=== PATIENT | female | born 1955 | race Caucasian/White ===

== ENCOUNTER 2017-11-02 11:39 | Emergency (ER) | payer OTHER ==
[~2017-11-02] VITALS: Ht 170.2 cm; Wt 89.1 kg
[~2017-11-02 11:39] MED LIST: ACET-1256 PO; NF656 TD; POTA10CA28 PO; SPIR50TA2 PO; TRAM-10 PO; TRAZ50TA35 PO
[2017-11-02 11:43] VITALS: TEMP 36.8; Ht 170.2 cm; Wt 89.1 kg
[2017-11-02] MEDS ORDERED: HYDROmorphone INJ 1 MG/ML SYR IV STA (12:02)
[2017-11-02] MEDS ORDERED: ONDANSETRON INJ 2 MG/ML 2 ML VIAL IV STA (12:02)
[2017-11-02] MEDS ORDERED: SODIUM CHLORIDE 0.9% 1000ML 1,000 ML IV ONE (12:15)
[2017-11-02 12:27] LABS: BASO % 0.2 %; BASO ABS # 0.02 K/uL (0-0.2); COMPLETE YES; EOS % 0.6 %; HEMATOCRIT 36.3 % (37-47); IG% 0.2 %; LYMPH % 15.2 %; LYMPH ABS # 1.34 K/uL (1.2-3.4); MEAN CELL VOLUME 92.6 fL (80-100); MEAN CORPUSCULAR HEMOGLOBIN 31.1 pg (25-34); MEAN CORPUSCULAR HGB CONC 33.6 g/dl (32-36); MEAN PLATELET VOLUME 9.1 fL (7.4-10.4); MONO % 4.7 %; NEUT % 79.1 %; PLATELET COUNT 240 K/uL (130-400); RED BLOOD COUNT 3.92 M/uL (4.2-5.4)
[2017-11-02 12:42] LABS: ALT/SGPT 17 U/L (12-78); BLOOD UREA NITROGEN 7 mg/dl (7-18); BUN/CREATININE RATIO 6.1 (10-20); CALCIUM 9.4 mg/dl (8.5-10.1); CARBON DIOXIDE 26 mmol/L (21-32); CHLORIDE 102 mmol/L (98-107); CREATININE 1.12 mg/dl (0.60-1.20); GLUCOSE 101 mg/dl (70-99); POTASSIUM 4.5 mmol/L (3.5-5.1); SODIUM 133 mmol/L (136-145)
[2017-11-02 12:45] LABS: ALKALINE PHOSPHATASE 107 U/L (45-117); AST/SGOT 13 U/L (15-37)
[2017-11-02] MEDS ORDERED: HYDROmorphone INJ 0.5 MG/0.5 ML SYR IV STA (13:16)
[2017-11-02 13:28] LABS: URINE APPEARANCE CLEAR (CLEAR); URINE BILIRUBIN NEG (NEG); URINE COLOR YELLOW; URINE EPITHELIAL CELL AUTO >30 /lpf (0-5); URINE NITRITE NEG (NEG); URINE PH 6.5 (4.5-7.5); URINE SPECIFIC GRAVITY 1.013 (1.000-1.030); UROBILINOGEN NEG (NEG)
[2017-11-02 13:30] LABS: MANUAL MICROSCOPIC REQUIRED? NO; REVIEW REQ? NO
[2017-11-02 14:06] VITALS: BP 127/75; PULSE 75; O2SAT 95
--- NOTE | 2017-11-02 20:10 | EMERGENCY ROOM VISIT NOTE ---
ED Visit Note First contact with patient: 11:49 Chief Complaint: Sciatica and I think my potassium and magnesium is low. History of Present Illness: Ms. Hernandez is a 62-year-old white female who ambulates into the ED complaining of left-sided back pain and bilateral lower leg weakness. Historically patient reports she has a history of sciatica, stage III chronic kidney disease and pancreatitis. Patient reports a gradual onset of severe left-sided lower back pain that started 3 days ago. She feels this is consistent with her previous sciatica. She places her discomfort just left of the spine in the lower lumbar area. She describes her pain as a sharp sensation. There is radiation into the gluteal muscle and down the posterior thigh and stops before the knee. She rates her discomfort 8/10. Her pain worsens with palpation, ambulation in all movements of the lumbar spine. She has not identified any alleviating factors related to the pain. She has been using her prescribed Lidoderm patches and Tylenol without relief of her discomfort. Additionally she complains of bilateral lower leg weakness. She feels this is consistent with decreasing potassium and magnesium levels related to her chronic kidney disease. She reports she's had these symptoms before. She describes a progression of weakness starting at the feet extending up into the thighs. This worsens with walking. She reports over the last few days she has been trying to increase her magnesium and potassium. Additionally she reports shortly after waking this morning she developed some nausea and had dry heaving but did not vomit. He has not taken any antinausea medications. She denies fevers, chills, sweats, skin eruptions, skin color changes, upper respiratory tract symptoms, cough, wheezing, shortness of breath, chest pain, abdominal pain, diarrhea, constipation, rectal bleeding, black/tarry stools, urinary symptoms, hematuria, vaginal bleeding, vaginal discharge, bowel and bladder dysfunction, genital paresthesias. Review of Systems: As noted above in history of present illness. All body systems were reviewed and found to be negative as noted above. Past Medical History: As noted above and status post cholecystectomy Current Medications: Potassium chloride, trazodone, Aldactone. Allergies to Medications: Acetaminophen, codeine, fentanyl, Toradol, latex, morphine, moxifloxacin, propoxyphene. Social History: Patient is not employed; she feels safe in her home environment ; patient admits to tobacco use. Physical Examination: Vital Signs: Date Time Temp Pulse Resp B/P (MAP) Pulse Ox O2 Delivery O2 Flow Rate FiO2 11/02/17 14:06 75 17 127/75 95 11/02/17 12:43 75 17 118/65 99 Room Air 11/02/17 11:43 36.8 98 18 154/84 100 Room Air GENERAL: 62-year-old female in mild to moderate distress due to pain, nontoxic- appearing, afebrile and hemodynamically stable. NEUROLOGICAL: Awake, alert and oriented to person, place and time. Answering questions appropriately and following commands. Normal gait. Good hand eye coordination. No focal motor sensory deficits. SKIN: Warm, dry and pink. No soft tissue eruptions or trauma noted. HEENT: Atraumatic and normocephalic. PERRLA. Sclera white and conjunctiva pink. No drainage from naris. Oral cavity moist and pink. Pharynx is nonerythematous or edematous. Speech normal. No lymphadenopathy. Trachea midline. No jugular venous distention. BACK: No tenderness over the bony cervical and thoracic spine. No CVA tenderness. Moderate tenderness diffusely throughout the lumbar spine with prominence in the L3 L5 area. There is also moderate tenderness throughout the paraspinous muscles without spasm. Decreased range of motion in all movements due to pain. Negative straight leg raise test. THORAX: Lungs sounds are clear to auscultation and equal bilaterally with symmetrical chest wall. No wheezing, rales or rhonchi. No crepitus, tenderness , subcutaneous air or deformities noted. HEART: Regular rate and rhythm. No gallops, rubs or murmurs are appreciated. ABDOMEN: Flat, soft and nontender. Positive bowel sounds in all quadrants. No guarding, rigidity or organomegaly. EXTREMITIES: Moves all extremities well on command and with purpose. All distal neurovascular statuses are intact and equal bilaterally. No calf tenderness or cords. Lower Extremities: No gross bony deformity. No shortening or malrotation. No tenderness in the hips, knees or ankles. 4/5 muscle strength in all movements of the hips, knees and ankles. Able to distinguish light sensations through all dermatomes. Distal pulses and capillary refill is brisk and equal bilaterally. Patellar and Achilles deep tendon reflexes intact and equal bilaterally. ED Course: Patient is assessed as noted above. Patient's medication list was reviewed. Laboratory Testing: Test 11/02/17 12:00 11/02/17 12:10 Range/Units Urine Color YELLOW Urine Appearance CLEAR CLEAR Urine pH 6.5 4.5-7.5 Urine Specific [place] 1.013 1.000-1.030 Urine Protein NEG NEG Urine Glucose (UA) NEG NEG Urine Ketones NEG NEG Urine Occult Blood NEG NEG Urine Nitrite NEG NEG Urine Bilirubin NEG NEG Urine Urobilinogen NEG NEG Urine Leukocyte Esterase SMALL NEG Urine WBC (Auto) 5-10 0-5 /hpf Urine RBC (Auto) 0-4 0-4 /hpf Urine Hyaline Casts (Auto) 0 0-5 /lpf Urine Epithelial Cells (Auto) >30 0-5 /lpf Urine Bacteria (Auto) NEG NEG White Blood Count 8.80 4.8-10.8 K/uL Red Blood Count 3.92 4.2-5.4 M/uL Hemoglobin 12.2 12.0-16.0 g/dL Hematocrit 36.3 37-47 % Mean Corpuscular Volume 92.6 80-100 fL Mean Corpuscular Hemoglobin 31.1 25-34 pg Mean Corpuscular Hemoglobin Concent 33.6 32-36 g/dl Platelet Count 240 130-400 K/uL Mean Platelet Volume 9.1 7.4-10.4 fL Neutrophils (%) (Auto) 79.1 % Lymphocytes (%) (Auto) 15.2 % Monocytes (%) (Auto) 4.7 % Eosinophils (%) (Auto) 0.6 % Basophils (%) (Auto) 0.2 % Neutrophils # (Auto) 6.96 1.4-6.5 K/uL Lymphocytes # (Auto) 1.34 1.2-3.4 K/uL Monocytes # (Auto) 0.41 0.11-0.59 K/uL Eosinophils # (Auto) 0.05 0-0.5 K/uL Basophils # (Auto) 0.02 0-0.2 K/uL RDW Standard Deviation 47.4 36.4-46.3 fL RDW Coefficient of Variation 14.1 11.5-14.5 % Immature Granulocyte % (Auto) 0.2 % Immature Granulocyte # (Auto) 0.02 0.00-0.02 K/uL Sodium Level 133 136-145 mmol/L Potassium Level 4.5 3.5-5.1 mmol/L Chloride Level 102 98-107 mmol/L Carbon Dioxide Level 26 21-32 mmol/L Anion Gap 6.0 3-11 mmol/L Blood Urea Nitrogen 7 7-18 mg/dl Creatinine 1.12 0.60-1.20 mg/dl Est Creatinine Clear Calc Drug Dose 59.7 ml/min Estimated GFR () 61.0 Estimated GFR (Non- 52.6 BUN/Creatinine Ratio 6.1 10-20 Random Glucose 101 70-99 mg/dl Calcium Level 9.4 8.5-10.1 mg/dl Magnesium Level 1.8 1.8-2.4 mg/dl Total Bilirubin 0.3 0.2-1 mg/dl Direct Bilirubin < 0.1 0-0.2 mg/dl Aspartate Amino Transf (AST/SGOT) 13 15-37 U/L Alanine Aminotransferase (ALT/SGPT) 17 12-78 U/L Alkaline Phosphatase 107 45-117 U/L Total Protein 7.4 6.4-8.2 gm/dl Albumin 3.9 3.4-5.0 gm/dl Lipase 98 73-393 U/L Patient was hydrated with normal saline, she received a total of 1.5 mg of the Dilaudid IV for pain and 4 mg of Zofran IV. Patient was reassessed multiple times during her stay in the emergency department. Patient's case was reviewed with Dr. Falcon; we agreed on diagnostic approach, treatment, disposition and plan. Patient was educated about today's findings and instructed on her treatment plan ; she verbalizes understanding and agreement with this plan. Clinical Impression: Exacerbation of left-sided sciatica. Bilateral lower leg weakness. Decision-Making: Initially my differential diagnosis I considered ruptured herniated disc, exacerbation of sciatica, musculoskeletal trauma, paraspinous muscle spasm, spinal abscess and other causes. Patient's blood pressure: Normal. Blood pressure disposition: None. Disposition: Patient discharged to home in stable condition; prior to departure she was reassessed and subjectively reported she was feeling better and rated her discomfort 6/10. Plan: Patient was encouraged to continue her current medications as prescribed. Patient was encouraged to stay well-hydrated. Patient was encouraged to follow-up with her primary care provider for recheck. Patient was encouraged return ED for worsening pain, fevers, bowel and bladder discomfort, genital paresthesias or any new/concerning symptoms.
== END 2017-11-02 14:07 | disposition home or self-care (01) ==
LOC: C.EDB 11:42
DX: M54.42 Lumbago with sciatica, left side (principal); M62.81 Muscle weakness (generalized); N18.3 Chronic kidney disease, stage 3 (moderate); K86.1 Other chronic pancreatitis; Z72.0 Tobacco use; Z79.899 Other long term (current) drug therapy

== ENCOUNTER 2018-07-15 13:46 | Emergency (ER) | payer OTHER ==
[~2018-07-15] VITALS: Ht 170.2 cm; Wt 88.9 kg
[~2018-07-15 13:46] MED LIST changes: -ACET-1256 PO; -NF656 TD; -POTA10CA28 PO; -SPIR50TA2 PO; -TRAZ50TA35 PO
[2018-07-15 13:51] VITALS: TEMP 36.8; Ht 170.2 cm; Wt 88.9 kg
[2018-07-15] MEDS ORDERED: HYDROmorphone INJ 0.5 MG/0.5 ML SYR IV STA (14:07)
[2018-07-15] MEDS ORDERED: SODIUM CHLORIDE 0.9% 1000ML 1,000 ML IV STA (14:07)
[2018-07-15 14:36] LABS: BASO % 0.2 %; BASO ABS # 0.01 K/uL (0-0.2); EOS % 0.3 %; EOS ABS # 0.02 K/uL (0-0.5); HEMATOCRIT 37.6 % (37-47); HEMOGLOBIN 12.9 g/dL (12.0-16.0); IG# 0.01 K/uL (0.00-0.02); LYMPH % 15.8 %; LYMPH ABS # 1.03 K/uL (1.2-3.4); MEAN CELL VOLUME 90.6 fL (80-100); MEAN CORPUSCULAR HEMOGLOBIN 31.1 pg (25-34); MEAN CORPUSCULAR HGB CONC 34.3 g/dl (32-36); MEAN PLATELET VOLUME 9.6 fL (7.4-10.4); MONO % 5.1 %; MONO ABS # 0.33 K/uL (0.11-0.59); NEUT % 78.4 %; NEUT ABS # 5.12 K/uL (1.4-6.5); PLATELET COUNT 240 K/uL (130-400); RED CELL DISTRIBUTION WIDTH CV 13.8 % (11.5-14.5); RED CELL DISTRIBUTION WIDTH SD 45.6 fL (36.4-46.3); WHITE BLOOD COUNT 6.52 K/uL (4.8-10.8)
[2018-07-15 14:57] LABS: CALCIUM 9.2 mg/dl (8.5-10.1); CREATININE 1.15 mg/dl (0.60-1.20); POTASSIUM 3.5 mmol/L (3.5-5.1); TOTAL PROTEIN 7.7 gm/dl (6.4-8.2)
[2018-07-15] MEDS ORDERED: MAGNESIUM OXIDE 400 MG TAB PO STA (15:17)
[2018-07-15 15:30] LABS: INFLUENZA B ANTIGEN Neg for Influ B (NEG)
--- NOTE | 2018-07-15 15:52 | EMERGENCY ROOM VISIT NOTE ---
History First contact with patient: 13:57 Chief Complaint: FLU LIKE SX Stated Complaint: FLU SYMPTOMS History of Present Illness The patient is a 62 year old female who presents to the Emergency Room with complaints of flulike symptoms. The patient she is states she started Wednesday morning with a sore throat left ear pain and pain over her maxillary sinuses. Later in the afternoon she started with loose bowel movements every time she ate. She also admits to some nausea but denies any vomiting. She is not eating as much. She also feels achy all over especially her low back. She denies any urinary symptoms of frequency, urgency, dysuria or hematuria. The patient does admit to kidney disease. The patient states that her grandson had similar symptoms but she states she has it worse than he did. Review of Systems 10 system review was performed and was negative unless stated otherwise history of present illness. Past Medical/Surgical History Medical Problems: (1) Cyst of right kidney (2) Pancreatitis (3) Stage III chronic kidney disease Surgical Problems: (1) History of cholecystectomy Family History Cancer Diabetes mellitus Gallbladder disease Heart disease Hypertension Kidney stones Social History Smoking Status: Current Every Day Smoker Alcohol Use: none Drug Use: none Marital Status: Housing Status: lives with significant other Occupation Status: unemployed Current/Historical Medications Scheduled Amlodipine (Norvasc), 5 MG PO DAILY Potassium Chloride (Micro-K Ext Rel), 10 MEQ PO BID Spironolactone (Aldactone), 50 MG PO DAILY Scheduled PRN Tramadol (Ultram), 50 MG PO Q8H PRN for Pain Trazodone Hcl (Trazodone), 50 MG PO HS PRN for Sleep Physical Exam Vital Signs Date Time Temp Pulse Resp B/P (MAP) Pulse Ox O2 Delivery O2 Flow Rate FiO2 07/15/18 15:37 72 18 145/80 98 Room Air 07/15/18 14:42 75 18 134/78 96 Room Air 07/15/18 13:51 36.8 92 20 140/85 98 Room Air Physical Exam PHYSICAL EXAM: Vital Signs were reviewed: Temperature 36.9, blood pressure 140/ 85, pulse 92, respiratory rate 20 reviewed Nurse's notes and agree. Oxygen saturation is 98 % on room air which is normal . GENERAL: 62-year-old female appears in no acute distress. MENTAL STATUS: Alert, oriented, coherent. EARS: Canals clear. TMs good light reflex, no erythema or fluid level noted. NOSE: Nasal mucosa with moderate erythema engorgement. PHARYNX: Moderate erythema, no edema noted. No exudate noted. Airway is adequate. SINUSES: Frontal sinuses nontender to palpation. Right maxillary sinus tenderness percussion, left side nontender. NECK: Supple, non-tender. No lymphadenopathy noted. LUNGS: Clear to auscultation without wheezes rales or rhonchi. CARDIAC: Regular rate and rhythm without murmur. Abdomen: Positive bowel sounds all 4 quadrants soft, nontender to palpation without organomegaly or masses. SKIN: No rashes noted. Medical Decision & Procedures Laboratory Results 07/15/18 14:20 Red Blood Count 4.15, Mean Corpuscular Volume 90.6, Mean Corpuscular Hemoglobin 31.1, Mean Corpuscular Hemoglobin Concent 34.3, Mean Platelet Volume 9.6, Neutrophils (%) (Auto) 78.4, Lymphocytes (%) (Auto) 15.8, Monocytes (%) (Auto) 5.1, Eosinophils (%) (Auto) 0.3, Basophils (%) (Auto) 0.2, Neutrophils # (Auto) 5.12, Lymphocytes # (Auto) 1.03, Monocytes # (Auto) 0.33, Eosinophils # (Auto) 0.02, Basophils # (Auto) 0.01 07/15/18 14:20 Test 07/15/18 14:20 07/15/18 14:25 White Blood Count 6.52 K/uL (4.8-10.8) Red Blood Count 4.15 M/uL (4.2-5.4) Hemoglobin 12.9 g/dL (12.0-16.0) Hematocrit 37.6 % (37-47) Mean Corpuscular Volume 90.6 fL (80-100) Mean Corpuscular Hemoglobin 31.1 pg (25-34) Mean Corpuscular Hemoglobin Concent 34.3 g/dl (32-36) Platelet Count 240 K/uL (130-400) Mean Platelet Volume 9.6 fL (7.4-10.4) Neutrophils (%) (Auto) 78.4 % Lymphocytes (%) (Auto) 15.8 % Monocytes (%) (Auto) 5.1 % Eosinophils (%) (Auto) 0.3 % Basophils (%) (Auto) 0.2 % Neutrophils # (Auto) 5.12 K/uL (1.4-6.5) Lymphocytes # (Auto) 1.03 K/uL (1.2-3.4) Monocytes # (Auto) 0.33 K/uL (0.11-0.59) Eosinophils # (Auto) 0.02 K/uL (0-0.5) Basophils # (Auto) 0.01 K/uL (0-0.2) RDW Standard Deviation 45.6 fL (36.4-46.3) RDW Coefficient of Variation 13.8 % (11.5-14.5) Immature Granulocyte % (Auto) 0.2 % Immature Granulocyte # (Auto) 0.01 K/uL (0.00-0.02) Urine Color YELLOW Urine Appearance CLEAR (CLEAR) Urine pH 6.0 (4.5-7.5) Urine Specific [place] 1.023 (1.000-1.030) Urine Protein TRACE (NEG) Urine Glucose (UA) NEG (NEG) Urine Ketones TRACE (NEG) Urine Occult Blood NEG (NEG) Urine Nitrite NEG (NEG) Urine Bilirubin NEG (NEG) Urine Urobilinogen NEG (NEG) Urine Leukocyte Esterase NEG (NEG) Urine WBC (Auto) 1-5 /hpf (0-5) Urine RBC (Auto) 0-4 /hpf (0-4) Urine Hyaline Casts (Auto) 5-10 /lpf (0-5) Urine Epithelial Cells (Auto) >30 /lpf (0-5) Urine Bacteria (Auto) NEG (NEG) Anion Gap 10.0 mmol/L (3-11) Est Creatinine Clear Calc Drug Dose 58.1 ml/min Estimated GFR () 59.1 Estimated GFR (Non- 51.0 BUN/Creatinine Ratio 7.2 (10-20) Calcium Level 9.2 mg/dl (8.5-10.1) Magnesium Level 1.5 mg/dl (1.8-2.4) Total Bilirubin 0.4 mg/dl (0.2-1) Direct Bilirubin 0.1 mg/dl (0-0.2) Aspartate Amino Transf (AST/SGOT) 16 U/L (15-37) Alanine Aminotransferase (ALT/SGPT) 21 U/L (12-78) Alkaline Phosphatase 105 U/L (45-117) Total Protein 7.7 gm/dl (6.4-8.2) Albumin 4.0 gm/dl (3.4-5.0) Lipase 90 U/L (73-393) Influenza Type A Antigen Neg for Influ A (NEG) Influenza Type B Antigen Neg for Influ B (NEG) Medications Administered Medications (Trade) Dose Ordered Sig/Gladis Route Start Time Stop Time Status Last Admin Dose Admin Sodium Chloride 1,000 ml @ 999 mls/hr Q1H1M STAT IV 07/15/18 14:07 07/15/18 15:07 DC 07/15/18 14:37 999 MLS/HR Hydromorphone HCl (Dilaudid Inj) 0.5 mg NOW STAT IV 07/15/18 14:07 07/15/18 14:09 DC 07/15/18 14:38 0.5 MG Magnesium Oxide (Mag-Ox Tab) 400 mg NOW STAT PO 07/15/18 15:17 07/15/18 15:20 DC 07/15/18 15:36 400 MG ED Course The patient was evaluated. Patient's EMR medication list were reviewed. Rapid strep was negative. Culture is pending. IV access was obtained. The patient was given 1 L normal saline wide open. CBC and differential, renal profile, LFTs and lipase levels were ordered. Urinalysis was ordered. The patient was given Dilaudid 0.5 mg IV for pain. Labs are reviewed. The patient's white count was normal. The patient's magnesium was slightly low at 1.5 she was given magnesium 400 mg p.o. rapid influenza was negative for influenza A and influenza B. The patient was informed of all findings and discharged home in stable condition Medical Decision Differential diagnosis include viral illness, influenza, strep pharyngitis, viral pharyngitis, acute sinusitis [place] Drug Monitoring Program Search Results: patient reviewed within database Medication Reconcilliation Current Medication List: was personally reviewed by me Blood Pressure Screening Patient's blood pressure: Normal blood pressure Impression Primary Impression: Viral illness Additional Impressions: Pharyngitis Hypomagnesemia Departure Information Dispostion Home / Self-Care Condition GOOD Referrals Enrique Haq PA-C (PCP) Forms HOME CARE DOCUMENTATION FORM, IMPORTANT VISIT INFORMATION Patient Instructions [facility], Sore Throat - [facility] Additional Instructions Push fluids, rest. Recommend [id number] steroid nasal spray as directed on the label for at least 5 days. Follow bland diet. Advance diet slowly as tolerated. Follow-up with your family doctor on Wednesday for reevaluation. If symptoms worsen in the interim, return to ER. Problem Qualifiers Additional Impressions: Pharyngitis Pharyngitis/tonsillitis etiology: unspecified etiology Qualified Codes: J02.9 - Acute pharyngitis, unspecified
[2018-07-15 16:12] VITALS: BP 135/89; PULSE 75; O2SAT 98
[2018-07-18] MEDS ORDERED: AMLO5TAB3 PO (06:22)
== END 2018-07-15 16:14 | disposition home or self-care (01) ==
LOC: C.EDB 13:48 → C.EDC 16:14
DX: B34.9 Viral infection, unspecified (principal); J02.9 Acute pharyngitis, unspecified; E83.42 Hypomagnesemia; N18.3 Chronic kidney disease, stage 3 (moderate); K85.90 Acute pancreatitis without necrosis or infection, unspecified; F17.210 Nicotine dependence, cigarettes, uncomplicated; Z79.899 Other long term (current) drug therapy

== ENCOUNTER 2018-07-18 14:14 | Emergency (ER) | payer OTHER ==
[~2018-07-18 14:14] MED LIST changes: +AMLO5TAB3 PO; -TRAM-10 PO
[2018-07-18 14:18] VITALS: BP 129/77; TEMP 36.6; Ht 170.2 cm
[2018-07-18] MEDS ORDERED: ONDANSETRON INJ 2 MG/ML 2 ML VIAL IV STA (14:29)
[2018-07-18] MEDS ORDERED: HYDROmorphone INJ 0.5 MG/0.5 ML SYR IV STA ×2 (14:29→16:11)
[2018-07-18] MEDS ORDERED: SODIUM CHLORIDE 0.9% 500ML 500 ML IV STA (14:29)
--- NOTE | 2018-07-18 14:44 | EMERGENCY ROOM VISIT NOTE ---
History Report prepared by Dinah: [place] Under the Supervision of: Dr. Saurabh Garrison M.D. First contact with patient: 14:19 Chief Complaint: BACK PAIN Stated Complaint: DIARRHEA,BACK PAIN History of Present Illness The patient is a 62 year old female who presents to the Emergency Room with complaints of persistent nausea, back pain, and diarrhea beginning 3 days ago. The patient reports that she has had 10 bowel movements since last night. She states that her grandson recently had similar symptoms. She states that her nausea is worsened with eating and drinking. The patient notes mild abdominal pain, back spasms, and states that she feels fatigued. She denies recent travel , antibiotics, or urinary symptoms. She notes that she drinks bottled water. The patient was seen on July 15 by Edith Yarbrough PA-C, and was found to have mildly low magnesium. Negative urine, normal white count, negative flu. Source of History: patient Onset: 3 days ago Position: back, other (global) Symptom Intensity: diarrhea: 10 times since last night Quality: other (nausea, diarrhea, back pain) Timing: other (persistent) Modifying Factors (Worsening): eating, drinking Associated Symptoms: + abdominal pain (mild), + urinary symptoms Note: back spasms Review of Systems See HPI for pertinent positives and negatives. A total of ten systems were reviewed and were otherwise negative. Past Medical & Surgical Medical Problems: (1) Cyst of right kidney (2) Pancreatitis (3) Stage III chronic kidney disease Surgical Problems: (1) History of cholecystectomy (2) History of hip surgery Family History Cancer Diabetes mellitus Gallbladder disease Heart disease Hypertension Kidney stones Social History Smoking Status: Current Every Day Smoker Alcohol Use: none Drug Use: none Marital Status: Housing Status: lives with significant other Occupation Status: unemployed Current/Historical Medications Scheduled Amlodipine (Norvasc), 5 MG PO DAILY Potassium Chloride (Micro-K Ext Rel), 10 MEQ PO BID Spironolactone (Aldactone), 50 MG PO DAILY Scheduled PRN Loperamide Hcl (Imodium A-D), 2 MG PO UD PRN for Diarrhea Trazodone Hcl (Trazodone), 50 MG PO HS PRN for Sleep Allergies Coded Allergies: Acetaminophen (Unverified Allergy, Unknown, ., 11/02/17) Codeine (Verified Allergy, Unknown, swelling, 11/02/17) Fentanyl (Verified Allergy, Unknown, lip swelling, 11/02/17) Ketorolac Tromethamine (Verified Allergy, Unknown, swelling, 11/02/17) Latex (Verified Allergy, Unknown, skin irriation., 11/02/17) Morphine (Verified Allergy, Unknown, swelling, 11/02/17) Moxifloxacin (Unverified Allergy, Unknown, ., 11/02/17) Peanut (Unverified Allergy, Unknown, ., 11/02/17) Propoxyphene (Verified Allergy, Unknown, swelling, 11/02/17) Physical Exam Vital Signs Date Time Temp Pulse Resp B/P (MAP) Pulse Ox O2 Delivery O2 Flow Rate FiO2 07/18/18 16:30 82 16 97 07/18/18 14:39 79 07/18/18 14:18 36.6 88 18 129/77 98 Room Air Physical Exam GENERAL: Awake, alert, well-appearing, NAD HENT: Normocephalic, atraumatic. EYES: Normal conjunctiva. Sclera non-icteric. PERRL. No anisocoria. NECK: Supple. No nuchal rigidity. FROM. RESPIRATORY: CTAB, no rhonchi, wheezing, crackles CARDIAC: RRR, no MRG ABDOMEN: Soft, diffuse abdominal discomfort, ND, not peritonitic, BS+ MSK: No chest wall TTP, no LE edema BACK: Mild diffuse lower back discomfort with no step-offs or overlying skin changes NEURO: GCS 15, CN 2-12 intact, moves all 4s on command. No saddle anesthesia SKIN: No rash or jaundice noted. Medical Decision & Procedures ER Provider Diagnostic Interpretation: Radiology results as stated below per my review and radiologist interpretation: L-SPINE MIN 4 VIEWS ROUTINE CLINICAL HISTORY: 62 years-old Female presenting with Back pain. TECHNIQUE: Frontal, bilateral oblique, lateral, and coned in lateral views of the lumbar spine were obtained. COMPARISON: Correlation made to CT of the abdomen and pelvis from 07/03/2016. FINDINGS: No scoliosis. 7 mm of grade 1 anterolisthesis of L4 on L5 as on prior exam. Vertebral bodies maintain normal height and alignment otherwise. Intervertebral disc heights preserved. Facet arthropathy is noted. No evidence of a pars defect. No compression deformity or acute subluxation. Osseous neural foraminal narrowing suggested at L4-5. Cholecystectomy clips. IMPRESSION: 1. Grade 1 anterolisthesis of L4 on L5, unchanged. 2. Facet arthropathy with suspected osseous neural foraminal narrowing at L4-5. 3. No radiographic evidence of acute osseous injury. Electronically signed by: Randall Campbell M.D. 07/18/2018 3:42 PM Dictated Date/Time: 07/18/2018 3:40 PM Laboratory Results 07/18/18 14:40 Red Blood Count 4.08, Mean Corpuscular Volume 91.9, Mean Corpuscular Hemoglobin 30.6, Mean Corpuscular Hemoglobin Concent 33.3, Mean Platelet Volume 9.6, Neutrophils (%) (Auto) 71.2, Lymphocytes (%) (Auto) 21.2, Monocytes (%) (Auto) 6.0, Eosinophils (%) (Auto) 1.2, Basophils (%) (Auto) 0.3, Neutrophils # (Auto) 4.87, Lymphocytes # (Auto) 1.45, Monocytes # (Auto) 0.41, Eosinophils # (Auto) 0.08, Basophils # (Auto) 0.02 07/18/18 14:40 Test 07/18/18 14:40 07/18/18 14:50 White Blood Count 6.84 K/uL (4.8-10.8) Red Blood Count 4.08 M/uL (4.2-5.4) Hemoglobin 12.5 g/dL (12.0-16.0) Hematocrit 37.5 % (37-47) Mean Corpuscular Volume 91.9 fL (80-100) Mean Corpuscular Hemoglobin 30.6 pg (25-34) Mean Corpuscular Hemoglobin Concent 33.3 g/dl (32-36) Platelet Count 241 K/uL (130-400) Mean Platelet Volume 9.6 fL (7.4-10.4) Neutrophils (%) (Auto) 71.2 % Lymphocytes (%) (Auto) 21.2 % Monocytes (%) (Auto) 6.0 % Eosinophils (%) (Auto) 1.2 % Basophils (%) (Auto) 0.3 % Neutrophils # (Auto) 4.87 K/uL (1.4-6.5) Lymphocytes # (Auto) 1.45 K/uL (1.2-3.4) Monocytes # (Auto) 0.41 K/uL (0.11-0.59) Eosinophils # (Auto) 0.08 K/uL (0-0.5) Basophils # (Auto) 0.02 K/uL (0-0.2) RDW Standard Deviation 48.0 fL (36.4-46.3) RDW Coefficient of Variation 14.2 % (11.5-14.5) Immature Granulocyte % (Auto) 0.1 % Immature Granulocyte # (Auto) 0.01 K/uL (0.00-0.02) Anion Gap 9.0 mmol/L (3-11) Estimated GFR () 48.6 Estimated GFR (Non- 42.0 BUN/Creatinine Ratio 11.0 (10-20) Calcium Level 9.1 mg/dl (8.5-10.1) Magnesium Level 1.6 mg/dl (1.8-2.4) Total Bilirubin 0.3 mg/dl (0.2-1) Direct Bilirubin 0.1 mg/dl (0-0.2) Aspartate Amino Transf (AST/SGOT) 15 U/L (15-37) Alanine Aminotransferase (ALT/SGPT) 23 U/L (12-78) Alkaline Phosphatase 108 U/L (45-117) Total Protein 7.2 gm/dl (6.4-8.2) Albumin 3.9 gm/dl (3.4-5.0) Lipase 153 U/L (73-393) Urine Color YELLOW Urine Appearance CLEAR (CLEAR) Urine pH 6.0 (4.5-7.5) Urine Specific [place] 1.007 (1.000-1.030) Urine Protein NEG (NEG) Urine Glucose (UA) NEG (NEG) Urine Ketones NEG (NEG) Urine Occult Blood NEG (NEG) Urine Nitrite NEG (NEG) Urine Bilirubin NEG (NEG) Urine Urobilinogen NEG (NEG) Urine Leukocyte Esterase NEG (NEG) Laboratory results reviewed by me Medications Administered Medications (Trade) Dose Ordered Sig/Gladis Route Start Time Stop Time Status Last Admin Dose Admin Ondansetron HCl (Zofran Inj) 4 mg NOW STAT IV 07/18/18 14:29 07/18/18 14:32 DC 07/18/18 15:16 4 MG Sodium Chloride 500 ml @ 999 mls/hr Q31M STAT IV 07/18/18 14:29 07/18/18 14:59 DC 07/18/18 14:53 999 MLS/HR Hydromorphone HCl (Dilaudid Inj) 0.5 mg NOW STAT IV 07/18/18 14:29 07/18/18 14:32 DC 07/18/18 15:15 0.5 MG Magnesium Oxide (Mag-Ox Tab) 800 mg ONE STAT PO 07/18/18 15:26 07/18/18 15:27 DC 07/18/18 16:21 800 MG Potassium Chloride (Klor-Con Tab) 20 meq NOW STAT PO 07/18/18 15:26 07/18/18 15:27 DC 07/18/18 16:20 20 MEQ Hydromorphone HCl (Dilaudid Inj) 0.5 mg NOW STAT IV 07/18/18 16:11 07/18/18 16:13 DC 07/18/18 16:21 0.5 MG ED Course 1422: The patient was evaluated in room B5. A complete history and physical exam was performed. 1604: I reevaluated the patient. Discussed results and discharge instructions: She verbalized understanding and agreement. The patient is ready for discharge. Medical Decision Nursing notes reviewed. Ancillary studies and prior records reviewed. The patient is a 62 year old female who presents to the Emergency Room with complaints of nausea, back pain, and diarrhea beginning 3 days ago. Differential diagnosis: Etiologies such as musculoskeletal, disc herniation, fracture, aortic disease, metastatic disease, cord compression, discitis, infection, renal colic, gastrointestinal, acute exacerbation of chronic back pain, sciatica, cauda equina, appendicitis, diverticulitis, PUD, biliary pathology, UTI, pancreatitis , obstruction, mesenteric ischemia, aortic pathology, infections, inflammatory bowel disease, renal colic, as well as others were entertained. Patient was seen and evaluated the bedside. The patient did have a recent visit for similar complaints. The patient does have some lower back pain that is bandlike across lower back. Patient does not have any fevers or other high- risk signs concerning including lack of fever the patient does not have any saddle anesthesia focal neuro deficits. The patient has good symmetric strength in her bilateral lower extremities. The patient also was complaining some diarrhea. Patient did have blood work completed along with L-spine films. The patient does have some anterior listhesis and L4-L5 facet arthropathy. The patient's blood work shows that she does have mildly low potassium and magnesium which were repleted. The patient was marked does not want any pain medication for home. The patient was given pain medication prior to discharge. Patient creatinine 1.3 last 1.1 do not believe she requires further fluids or inpatient treatment as the patient is tolerating p.o. without issue. Patient was told to follow-up with PCP to discuss her chronic back pain with a possible painter and decorator and/or back specialist. We also did discuss possibility of injections as well as light stretching light exercise and possible physical therapy. The patient was also counseled on smoking cessation and prescribed some cholestyramine for her diarrhea. Patient was given strict follow-up, discharge, and return precautions. All questions were answered. Patient was deemed suitable for outpatient follow-up at this time. Patient agreed with the plan of care and was safely discharged home. Medication Reconcilliation Current Medication List: was personally reviewed by me Blood Pressure Screening Patient's blood pressure: Normal blood pressure Blood pressure disposition: Did not require urgent referral Impression Primary Impression: Back pain Additional Impressions: Diarrhea Hypokalemia Hypomagnesemia Encounter for smoking cessation counseling Scribe Attestation The scribe's documentation has been prepared under my direction and personally reviewed by me in its entirety. I confirm that the note above accurately reflects all work, treatment, procedures, and medical decision making performed by me. Departure Information Dispostion Home / Self-Care Referrals Enrique Haq PA-C (PCP) Forms HOME CARE DOCUMENTATION FORM, IMPORTANT VISIT INFORMATION Patient Instructions Back Pain - [facility], Back Pain Relieve, Diarrhea, Diet Clear Liquid Dc, Hypokalemia Dc, Hypomagnesemia Dc, My [facility] Additional Instructions Please return to the emergency department if you have worsening or recurrent symptoms not amenable to at-home treatment. Please call for a follow-up appointment with her primary care physician. Please take your medications as prescribed. If you have other concerns and/or complaints please feel free to also call your primary care physician's office or return the ED for further evaluation, management, and treatment. You received narcotic or benzodiazepene medication while in the emergency room today. This is an addictive medication that may cause drowziness as well as constipation. Do not drive, operate heavy machinery, or drink alcohol under the influence of this medication. Take your medications as prescribed. Please follow-up with your PCP and discuss pain management. You may also benefit from following up with her spinal specialist. You may apply moist heat and/or ice to the area. You may consider topicals such as BenGay, Biofreeze, or icy hot. If you do have persistent symptoms you may consider obtaining a referral for physical therapy. You have been examined and treated today on an emergency basis only. This is not a substitute for, or an effort to provide, complete comprehensive medical care. It is impossible to recognize and treat all injuries or illnesses in a single emergency department visit. It is therefore important that you follow up closely with [facility], your PCP, and/or your specialist(s). Call as soon as possible for an appointment. Thank you for your time and consideration. I look forward to speaking with you again soon. Please don't hesitate to call us if you have any questions. Problem Qualifiers Primary Impression: Back pain Back pain location: low back pain Chronicity: chronic Back pain laterality : bilateral Sciatica presence: without sciatica Qualified Codes: M54.5 - Low back pain; G89.29 - Other chronic pain Additional Impressions: Diarrhea Diarrhea type: unspecified type Qualified Codes: R19.7 - Diarrhea, unspecified
[2018-07-18 14:55] LABS: BASO % 0.3 %; BASO ABS # 0.02 K/uL (0-0.2); EOS % 1.2 %; EOS ABS # 0.08 K/uL (0-0.5); HEMATOCRIT 37.5 % (37-47); HEMOGLOBIN 12.5 g/dL (12.0-16.0); IG# 0.01 K/uL (0.00-0.02); LYMPH % 21.2 %; LYMPH ABS # 1.45 K/uL (1.2-3.4); MEAN CELL VOLUME 91.9 fL (80-100); MEAN CORPUSCULAR HEMOGLOBIN 30.6 pg (25-34); MEAN CORPUSCULAR HGB CONC 33.3 g/dl (32-36); MEAN PLATELET VOLUME 9.6 fL (7.4-10.4); MONO ABS # 0.41 K/uL (0.11-0.59); NEUT % 71.2 %; NEUT ABS # 4.87 K/uL (1.4-6.5); PLATELET COUNT 241 K/uL (130-400); RED CELL DISTRIBUTION WIDTH CV 14.2 % (11.5-14.5); WHITE BLOOD COUNT 6.84 K/uL (4.8-10.8)
[2018-07-18 15:09] LABS: ALBUMIN 3.9 gm/dl (3.4-5.0); ALKALINE PHOSPHATASE 108 U/L (45-117); ALT/SGPT 23 U/L (12-78); AST/SGOT 15 U/L (15-37); BLOOD UREA NITROGEN 15 mg/dl (7-18); CALCIUM 9.1 mg/dl (8.5-10.1); CARBON DIOXIDE 24 mmol/L (21-32); CREATININE 1.35 mg/dl (0.60-1.20); GLUCOSE 107 mg/dl (70-99); LIPASE 153 U/L (73-393); POTASSIUM 3.4 mmol/L (3.5-5.1); SODIUM 135 mmol/L (136-145); TOTAL PROTEIN 7.2 gm/dl (6.4-8.2)
[2018-07-18] MEDS ORDERED: MAGNESIUM OXIDE 400 MG TAB PO STA (15:26)
[2018-07-18] MEDS ORDERED: POTASSIUM CHLORIDE 20 MEQ TABCR PO STA (15:26)
--- NOTE | 2018-07-18 15:43 | DIAGNOSTIC IMAGING REPORT ---
L-SPINE MIN 4 VIEWS ROUTINE CLINICAL HISTORY: 62 years-old Female presenting with Back pain. TECHNIQUE: Frontal, bilateral oblique, lateral, and coned in lateral views of the lumbar spine were obtained. COMPARISON: Correlation made to CT of the abdomen and pelvis from 07/03/2016. FINDINGS: No scoliosis. 7 mm of grade 1 anterolisthesis of L4 on L5 as on prior exam. Vertebral bodies maintain normal height and alignment otherwise. Intervertebral disc heights preserved. Facet arthropathy is noted. No evidence of a pars defect. No compression deformity or acute subluxation. Osseous neural foraminal narrowing suggested at L4-5. Cholecystectomy clips. IMPRESSION: 1. Grade 1 anterolisthesis of L4 on L5, unchanged. 2. Facet arthropathy with suspected osseous neural foraminal narrowing at L4-5. 3. No radiographic evidence of acute osseous injury. Electronically signed by: Randall Campbell M.D. 07/18/2018 3:42 PM Dictated Date/Time: 07/18/2018 3:40 PM
[2018-07-18] MEDS ORDERED: LOPE-5 PO (15:47)
[2018-07-18] MEDS ORDERED: SPIR50TA2 PO (16:15)
[2018-07-18 16:30] VITALS: PULSE 82; O2SAT 97
[2018-07-18] MEDS ORDERED: TRAZ50TA35 PO (17:06)
[2018-07-18] MEDS ORDERED: POTA10CA28 PO (19:56)
== END 2018-07-18 16:30 | disposition home or self-care (01) ==
LOC: C.EDB 14:15
DX: M54.5 Low back pain (principal); R19.7 Diarrhea, unspecified; E87.6 Hypokalemia; E83.42 Hypomagnesemia; Z71.6 Tobacco abuse counseling; R11.0 Nausea; N18.3 Chronic kidney disease, stage 3 (moderate); Z79.899 Other long term (current) drug therapy; Z88.1 Allergy status to other antibiotic agents; Z88.5 Allergy status to narcotic agent; Z88.6 Allergy status to analgesic agent; Z88.8 Allergy status to other drugs, medicaments and biological substances; Z91.010 Allergy to peanuts; Z91.040 Latex allergy status; F17.200 Nicotine dependence, unspecified, uncomplicated

== ENCOUNTER 2025-11-09 17:05 | Observation (INO) ==
--- NOTE | 2025-11-09 17:17 | Emergency Department Note ---
Impression & Plan Adynamic ileus, Hyponatremia, Hypokalemia, Hypomagnesemia, Gastroenteritis, Acute dehydration, Acute cystitis ED Provider Note NAME: DARRELL ROUSSEAU AGE: 70 SEX: F : 1955 ARRIVES VIA: Ambulance INFORMANT: Patient, EMS ED PROVIDER(S): Adarsh Mendosa DO CHIEF COMPLAINT: N/V/D HPI: This is a 70-year-old female with the PMHx of lumbar DDD s/p posterior fusion, hypertension, chronic pancreatitis, and chronic pain syndrome presenting to [facility] for further evaluation of nausea, vomiting and diarrhea. Patient is accompanied by EMS who provide additional history. The patient is recently postoperative from 10/20 at [facility] with Dr. Eckert for ongoing lumbar radiculopathy. The patient had a posterior spinal fusion with iliac crest bone graft. Patient states over the last few days she has had intermittent abdominal pain with nausea and vomiting. She has also had diarrhea. Diarrhea has slightly improved. She states is atypical for her to have abdominal pain with nausea and vomiting like this. She does report some back pain at her incisional sites. They deny fever or chills. No cough or congestion. Denies chest pain or palpitations. No shortness of breath. No urinary complaints. Patient denies recent changes in medications or OTC supplements. Patient offers no other complaints, today. ADDITIONAL HISTORY OBTAINED: Per HPI Chronic Medical/Social Conditions Affecting Care: Per HPI PAST MEDICAL HISTORY: See Below PAST SURGICAL HISTORY: See Below FAMILY HISTORY: See Below SOCIAL HISTORY: See Below HOME MEDICATIONS: See Below ALLERGIES: See Below VITALS: See Below PHYSICAL EXAMINATION: GENERAL: Sitting up in bed, alert, well appearing, well nourished, no distress, non-toxic EYE EXAM: normal conjunctiva. PERRL and EOM's grossly intact. OROPHARYNX: no exudate, no erythema, lips, buccal mucosa, and tongue normal and mucous membranes are dry NECK: supple, no nuchal rigidity, no adenopathy, non-tender LUNGS: Clear to auscultation. Normal chest wall mechanics HEART: no murmurs, regular rate, regular rhythm ABDOMEN: abdomen soft, slight generalized TTP, no masses, no rebound or guarding. BACK: Back is symmetrical on inspection and there is no deformity, no midline tenderness, no CVA tenderness. patient has multiple incisions over the midline as well as left back. Sutures are intact. No erythema, warmth or drainage. Lower extremities are neurovascularly intact. SKIN: no rashes and no bruising UPPER EXTREMITIES: upper extremities are grossly normal. LOWER EXTREMITIES: No pitting edema. NEURO EXAM: Normal sensorium, GCS 15, normal speech, no gross weakness of arms, no gross weakness of legs. MEDICAL DECISION MAKING: Differential diagnoses includes but not limited to appendicitis, bowel obstruction, diverticulitis, malignancy, nephrolithiasis, gastroenteritis, ACS, PNA, pancreatitis, hepatobiliary disease, UTI, Acute dehydration, electrolyte derangements, ileus, postoperative complication In summary, this is a 70 year old female who presented with N/V/D. Differential as above. Nursing notes and pertinent past medical records reviewed. Vital signs reviewed and the patient is Afebrile and hemodynamically stable. History and presentation revealed recent complex history with a posterior spinal fusion of the lumbar spine. Surgery was rather extensive as it required bone grafting as well from the iliac crest. Now with a GI like illness that could be consistent with gastroenteritis. Given her recent surgical postoperative period, this places her at high risk for intra-abdominal pathology including a small bowel obstruction. Patient will likely need CT imaging. Physical examination revealed as above. As a result of my initial evaluation, IV access was established and the patient was placed on CCRM. Therapeutics ordered include IV Hydromorphone and Zofran as well as IVFR. Patient has ongoing nausea and vomiting as well as diarrhea. Diarrhea has improved. These findings in the setting of recent postoperative period with major back surgery, this requires further investigation with imaging. CT abdomen/pelvis was ordered. Diagnostics interpreted by me include EKG and cardiac monitoring as listed below: -Cardiac Monitoring: An order was placed for continuous cardiac monitoring. The monitor shows a rate of 80-90s with regular rhythm. -ECG: normal sinus rhythm at a ventricular rate of [address] segment changes to suggest STEMI. Intervals are within normal limits. There is an isolated T wave inversion in lead V2. Patient completed laboratory studies and imaging. Results independently interpreted by me are mild anemia. No significant leukocytosis. Electrolyte derangements in the setting of acute dehydration including hyponatremia, hypokalemia and hypomagnesemia. The patient was managed with IV fluid resuscitation, IV Dilaudid for pain control and antiemetics with IV push Zofran. Patient urinalysis does show nitrite positive possible UTI. Given this as well as findings on CT scan consistent with ileus versus gastrointestinal illness/small bowel obstruction, will manage with IV antibiotics. She was given IV Zosyn. The patient has bowel function. Her vomiting has been controlled. I see no indications for NG tube placement or general surgery consultation at this time. Patient will need bowel rest and a clear liquid diet. She will need to continue with antiemetics and pain control as an inpatient. Will likely benefit from continued IV fluid resuscitation. Patient agreeable to this. Will discuss with the hospitalist team for admission. Ultimately, the decision was made to admit the patient for Postoperative ileus versus small bowel obstruction with concerns for possible gastroenteritis and UTI. Her diagnoses are complicated by dehydration and multiple electrolyte derangements including hyponatremia, hypokalemia and hypomagnesemia. I discussed the case with the hospitalist service via telephone/[employer] and they are agreeable to admit the patient to their services. Based on the above, including the patient's age, coexisting illnesses, labs, imaging, and exam findings the decision to treat as an inpatient. I discussed the patient with the hospitalist team who recommended admission to their services. They received the medications, treatments, interventions indicated above and their condition remained stable. I discussed my findings with the patient and their family and they understand and agree with the treatment plan. All patient / family questions were answered to their satisfaction. Consults/Care Managements Discussions: Per MDM ER treatment provided: See above Procedures: None Critical Care: None The chart was completed utilizing [employer] Speech voice recognition software. Grammatical errors, random word insertions, pronoun errors, and incomplete sentences are an occasional consequence of this system due to software limitations, ambient noise, and hardware issues. Any formal questions or concerns about the content, text, or information contained within the body of this dictation should be directly addressed to the physician for clarification. Past Med/Surg History Problem List (Updated 11/10/25 @ 02:57 by Adarsh Mendosa DO) Acute cystitis (Acute) Acute dehydration (Acute) Gastroenteritis (Acute) Adynamic ileus (Acute) Asymptomatic bacteriuria Ileus Gastroenteritis Lumbar pain H/O: hysterectomy Cyst of right kidney (Chronic) Headache (Acute) Flank pain (Acute) Hyponatremia (Acute) Hypokalemia (Acute) Hypomagnesemia (Acute) Medical History Hx of pancreatitis Stage III chronic kidney disease Pancreatitis Cholecystectomy planned CKD (chronic kidney disease) stage 3, GFR 30-59 ml/min Surgical History History of back surgery L2-5 fusion 2020 History of hip surgery History of cholecystectomy Social History Smoking Status: Former smoker Tobacco Type: Cigarettes Second Hand Exposure: Yes; Do You Dip or Chew Tobacco: No; Tobacco Cessation Education Requested by Patient: No Hx Alcohol Use: No Hx Substance Use: No Preferred Language: Upper Sorbian Communication Ability: Effective Wood Setter Required: No Beliefs That Will Affect Care: None marital status: Current Living Situation: Spouse Current Living Situation Comment: Home with current occupational status: unemployed Other Information That Helps Us Care for You: No Feels Safe at Home: Yes Safety Concerns: Feels Safe At This Time Assistive Devices: Glasses and Walker Allergies Allergies Allergy/AdvReac Type Severity Reaction Status Date / Time peanut Allergy Severe Anaphylaxis Verified 11/09/25 19:23 codeine Allergy Intermediate swelling Verified 11/09/25 19:23 fentanyl Allergy Intermediate lip Verified 11/09/25 19:23 swelling ketorolac Allergy Intermediate swelling Verified 11/09/25 19:23 morphine Allergy Intermediate swelling Verified 11/09/25 19:23 propoxyphene Allergy Intermediate swelling Verified 11/09/25 19:23 latex Allergy Mild skin Verified 11/09/25 19:23 irriation. moxifloxacin AdvReac Severe FROM Verified 11/09/25 19:23 AVELOX-BECAME UNCONSIOUS prednisone AdvReac Severe Confusion Verified 11/09/25 19:23 Home Meds Home Medications Medication Instructions Recorded Confirmed amlodipine 5 mg tablet 2.5 mg PO QAM 08/23/18 11/09/25 spironolactone 50 mg tablet 50 mg PO QAM 08/23/18 11/09/25 trazodone 50 mg tablet 50 mg PO HS 08/23/18 11/09/25 cyclobenzaprine 10 mg tablet 10 mg PO BID PRN Muscle Spasm 03/08/22 11/09/25 losartan 25 mg tablet 25 mg PO DAILY 03/08/22 11/09/25 loratadine 10 mg disintegrating 10 mg PO DAILY PRN Allergy Symptoms 05/13/22 11/09/25 tablet aspirin 81 mg tablet,delayed 81 mg PO DAILY 11/09/25 11/09/25 release dapagliflozin propanediol 5 mg 5 mg PO DAILY 11/09/25 11/09/25 tablet (Farxiga) hydrocodone 5 mg-acetaminophen 325 1 tab PO DIRECTED PRN Pain 11/09/25 11/09/25 mg tablet pravastatin 40 mg tablet 40 mg PO DAILY 11/09/25 11/09/25 Results & Data (ED) Vital Signs Vital Signs - 24 hr 11/09/25 17:24 11/09/25 17:25 11/09/25 17: Temperature 36.5 C Temperature Source Oral Pulse Rate 92 H 90 90 Pulse Rate [Apical] Pulse Rhythm Regular Regular Pulse Rhythm [Apical] Pulse Strength Normal Pulse Strength [Apical] Respiratory Rate 21 21 Respiratory Effort / Characteristics Non-Labored Spontaneous Respiratory Depth Normal Respiratory Pattern Regular Blood Pressure 135/65 Blood Pressure [Left Arm] Blood Pressure Mean 88 Blood Pressure Mean [Left Arm] Blood Pressure Position Sitting Blood Pressure Position [Left Arm] Pulse Oximetry 98 98 Oxygen Delivery Method Room Air Room Air Sepsis Recent Fever Within 48 Hours No Sepsis New/Unexplained Change in Mental Status N/A Sepsis Action Taken by Nursing No Action Required 11/09/25 19:22 Temperature Temperature Source Pulse Rate Pulse Rate [Apical] 80 Pulse Rhythm Pulse Rhythm [Apical] Regular Pulse Strength Pulse Strength [Apical] Normal Respiratory Rate 25 H Respiratory Effort / Characteristics Non-Labored Spontaneous Respiratory Depth Normal Respiratory Pattern Regular Blood Pressure Blood Pressure [Left Arm] 129/56 L Blood Pressure Mean Blood Pressure Mean [Left Arm] 80 Blood Pressure Position Blood Pressure Position [Left Arm] Sitting Pulse Oximetry 96 Oxygen Delivery Method Room Air Sepsis Recent Fever Within 48 Hours Sepsis New/Unexplained Change in Mental Status Sepsis Action Taken by Nursing Laboratory Data 11/09/25 17:24 11/09/25 17:24 Lab Results 11/09/25 11/09/25 Range/Units 17:24 18:31 WBC 6.08 (4.8-10.8) K/ul RBC 3.46 L (4.20-5.40) M/uL Hgb 10.6 L (12.0-16.0) g/dL Hct 31.1 L (37.0-47.0) % MCV 89.9 (80.0-100.0) fL MCH 30.6 (25.0-34.0) pg MCHC 34.1 (32.0-36.0) g/dL RDW Std Deviation 44.7 (36.4-46.3) fL RDW Coeff of Beth 13.8 (11.5-14.5) % Plt Count 437 H (130-400) K/uL MPV 8.5 L (9.4-12.4) fL Immature Gran % (Auto) 0.5 % Neut % (Auto) 76.8 % Lymph % (Auto) 11.0 % Parke % (Auto) 10.0 % Eos % (Auto) 1.0 % Baso % (Auto) 0.7 % Neut # (Auto) 4.67 (1.40-6.50) K/uL Lymph # (Auto) 0.67 L (1.20-3.40) K/uL Parke # (Auto) 0.61 H (0.11-0.59) K/uL Eos # (Auto) 0.06 (0.00-0.50) K/uL Baso # (Auto) 0.04 (0.00-0.20) K/uL Immature Gran # (Auto) 0.03 (0.01-0.20) K/uL Toxic Vacuolation 1+ Dohle Bodies 1+ Polychromasia 1+ Sodium 135 L (136-145) mmol/L Potassium 3.3 L (3.5-5.1) mmol/L Chloride 99 (98-107) mmol/L Carbon Dioxide 27 (21-32) mmol/L Anion Gap 9 (3-11) BUN 20 (6-23) mg/dl Creatinine 1.24 H (0.6-1.2) mg/dl Est Cr Clr Drug Dosing 50.6 ml/min eGFR 46.82 BUN/Creatinine Ratio 16.1 (10-20) Glucose 133 H (70-99(Fasting)) mg/dl Lactate 1.4 (0.4-2.0) mmol/L Calcium 8.7 (8.6-10.3) mg/dl Magnesium 1.7 (1.7-2.4) mg/dl Total Bilirubin 0.7 (0.2-1.0) mg/dl AST 17 (13-39) U/L ALT 14 (7-52) U/L Alkaline Phosphatase 120 H (34-104) U/L Total Protein 6.5 (6.0-8.3) gm/dl Albumin 3.3 L (3.4-5.0) gm/dl Globulin 3.2 (2.5-4.0) gm/dl Albumin/Globulin Ratio 1.0 (0.9-2) Lipase 6 L (11-82) U/L Urine Color Yellow Urine Appearance Clear (Clear) Urine pH 7.0 (4.5-7.5) Ur Specific Hopkins 1.028 (1.000-1.030) Urine Protein 1+ H (Negative) Urine Glucose (UA) 3+ H (Negative) Urine Ketones Trace H (Negative) Urine Blood Negative (Negative) Urine Nitrite Positive A (Negative) Urine Bilirubin Negative (Negative) Urine Urobilinogen Negative (Negative) Ur Leukocyte Esterase Trace H (Negative) Urine WBC (Auto) 21-50 H (0-5) /hpf Urine RBC (Auto) 0-2 (0-2) /hpf U Hyaline Cast (Auto) 0-2 (0-2) /lpf U Epithel Cells (Auto) 3-5 H (0-2) /hpf Urine Bacteria (Auto) 4+ H (None Seen) Urine Comment Administered Medications Cyclobenzaprine HCl (Cyclobenzaprine Hcl 10 Mg Tab) 10 mg PO BID PRN PRN Reason: Muscle Spasm Stop: 12/09/25 22:45 Last Admin: 11/09/25 23:16 Dose: 10 mg Documented By: RONNELL Hydromorphone HCl (Hydromorphone Inj 0.5 Mg/0.5 Ml Syr) 0.5 mg IV Q3H PRN PRN Reason: Severe Pain (Scale 7, 8, 9,10) Stop: 11/23/25 20:09 Last Admin: 11/09/25 23:58 Dose: 0.5 mg Documented By: Admin: 11/09/25 20:58 Dose: 0.5 mg Documented By: arturo Lactated Ringer's (Lr) 1,000 mls @ 100 mls/hr IV .Q10H DELONTE Stop: 11/10/25 06:14 Last Admin: 11/09/25 20:53 Dose: 100 mls/hr Documented By: VICTOR MANUEL Miscellaneous ((Dapagliflozin Propanediol [Farxiga] 5 Mg Tablet)~Order Awaiting Action) 1 each N/A QS DELONTE Stop: 12/09/25 23:14 Last Admin: 11/09/25 23:19 Dose: Not Given Documented By: RONNELL Ondansetron HCl (Ondansetron Inj 2 Mg/Ml 2 Ml Vial) 4 mg IV Q6H PRN PRN Reason: Nausea Stop: 12/09/25 22:45 Last Admin: 11/10/25 02:27 Dose: 4 mg Documented By: RONNELL Trazodone HCl (Trazodone Hcl 50 Mg Tab) 50 mg PO HS DELONTE Stop: 12/09/25 22:45 Last Admin: 11/09/25 23:16 Dose: 50 mg Documented By: RONNELL Discontinued Medications Hydromorphone HCl (Hydromorphone Inj 0.5 Mg/0.5 Ml Syr) 0.5 mg IV NOW STA Stop: 11/09/25 17:14 Last Admin: 11/09/25 17:25 Dose: 0.5 mg Documented By: arturo Hydromorphone HCl (Hydromorphone Inj 0.5 Mg/0.5 Ml Syr) 0.5 mg IV NOW STA Stop: 11/09/25 18:06 Last Admin: 11/09/25 18:21 Dose: 0.5 mg Documented By: JASS Parenteral Electrolytes (Plasma-Lyte A Ph 7.4) 1,000 mls @ 999 mls/hr IV .Q1H1M ONE Stop: 11/09/25 18:13 Last Infusion: 11/09/25 19:28 Dose: Infused Documented By: arturo Admin: 11/09/25 17:25 Dose: 999 mls/hr Documented By: arturo Potassium Chloride (K Nikko / Wtr) 10 meq in 100 mls @ 100 mls/hr IV Q1H DELONTE Stop: 11/09/25 21:44 Last Infusion: 11/09/25 22:50 Dose: Infused Documented By: Admin: 11/09/25 21:31 Dose: 100 mls/hr Documented By: arturo Infusion: 11/09/25 21:20 Dose: Infused Documented By: arturo Admin: 11/09/25 20:04 Dose: 100 mls/hr Documented By: arturo Infusion: 11/09/25 20:01 Dose: Infused Documented By: [facility] Admin: 11/09/25 18:52 Dose: 100 mls/hr Documented By: arturo Magnesium Sulfate/Dextrose (Magnesium Sulfate / D5w) 1 gm in 100 mls @ 100 mls/hr IV NOW STA Stop: 11/09/25 19:39 Last Infusion: 11/09/25 20:01 Dose: Infused Documented By: [facility] Admin: 11/09/25 18:52 Dose: 100 mls/hr Documented By: arturo Piperacillin Sod/Tazobactam Sod (Zosyn) 4.5 gm in 100 mls @ 200 mls/hr IV NOW ONE; Protocol Stop: 11/09/25 19:30 Last Infusion: 11/09/25 20:45 Dose: Infused Documented By: [facility] Admin: 11/09/25 20:04 Dose: 200 mls/hr Documented By: arturo Ioversol (Optiray 320 100ml) 93 ml IV ONCE ONE Stop: 11/09/25 18:23 Last Admin: 11/09/25 18:22 Dose: 93 ml Documented By: SHALONDA Ondansetron HCl (Ondansetron Inj 2 Mg/Ml 2 Ml Vial) 4 mg IV NOW STA Stop: 11/09/25 17:14 Last Admin: 11/09/25 17: Dose: 4 mg Documented By: [facility] Imaging Data Radiologist's Impression: Abdomen/Pelvis CT 11/09/25 17:13 EXAMINATION: CT of the abdomen and pelvis performed after the administration of IV contrast TECHNIQUE: Helical CT images from the lung bases through the symphysis pubis were obtained with contrast. Coronal and sagittal reformatted images were generated at a workstation for further assessment. Dose reduction techniques were achieved by using automatic exposure control and/or adjustment of mA and/or kV according to patient size and/or use of iterative reconstruction technique. COMPARISON: 08/03/2024 HISTORY: Abdominal pain FINDINGS: Lower chest: No consolidation. No pleural effusion or pneumothorax. Liver: No suspicious liver lesions. Portal veins appear patent. Gallbladder: Cholecystectomy Spleen: Normal size. Pancreas: No suspicious pancreatic lesions. The pancreatic duct is not dilated. Adrenal glands: No adrenal nodules. Kidneys: No hydronephrosis or obstructing renal stones. Simple right renal cyst. Bladder / Pelvic organs: Unremarkable. Bowel: Abnormally dilated loops of small bowel which are fluid-filled throughout the proximal small bowel. The region of transition appears somewhat gradual and in the left upper quadrant, in the region of series 3 image 132. The large bowel demonstrates minimal stool. The appendix is unremarkable. Moderate distention and fluid filling of the stomach. Lymph nodes: No retroperitoneal, mesenteric, or pelvic lymphadenopathy. Peritoneum / Retroperitoneum: No free fluid or air within the abdomen. Vessels: No infrarenal aortic aneurysm. Bones and soft tissues: No suspicious lesion in the bones. Fixation and laminectomy changes throughout the lumbar spine. There is edema throughout the paraspinous soft tissues at the laminectomy bed. IMPRESSION: Several dilated and fluid-filled loops of small bowel seen proximally, as well as moderate distention of the stomach. A gradual region of transition appears to be seen in the left upper quadrant, and possibly represents adynamic ileus and enteritis, versus a partial obstruction is difficult to entirely exclude. Electronically signed by Zechariah Phillips 11-09-2025 6:50 PM Discharge Plan Visit Data Chief Complaint: Vomiting Stated Complaint: ILLNESS ED Provider: Adarsh Mendosa Discharge Problem: Adynamic ileus, Hyponatremia, Hypokalemia, Hypomagnesemia, Gastroenteritis, Acute dehydration, Acute cystitis Patient Disposition: Admitted As Inpatient Condition: Fair Discharge Instructions Interventions: ED Discharge Assessment Last Done: 11/09/25 21:49
[2025-11-09] MEDS: HYDROmorphone INJ 0.5 MG/0.5 ML SYR IV STA ×2 (17:25→18:21)
[2025-11-09] MEDS: ONDANSETRON INJ 2 MG/ML 2 ML VIAL IV STA (17:25)
[2025-11-09] MEDS: PLASMA-LYTE A 1,000 ML IV ONE (17:25)
[2025-11-09 17:46] LABS: Hematocrit (blood only) 31.1 % (37.0-47.0); Hemoglobin 10.6 g/dL (12.0-16.0); Mean Corpuscular Hemoglobin 30.6 pg (25.0-34.0); Mean Corpuscular Volume 89.9 fL (80.0-100.0); Platelet Count 437 K/uL (130-400); RDW Standard Deviation 44.7 fL (36.4-46.3); Red Blood Count 3.46 M/uL (4.20-5.40); White Blood Count 6.08 K/ul (4.8-10.8)
[2025-11-09 18:04] LABS: Alanine Aminotransferase 14.0 U/L (7-52); Albumin Globulin Ratio 1.0 (0.9-2); Albumin Level 3.3 gm/dl (3.4-5.0); Alkaline Phosphatase 120.0 U/L (34-104); Anion Gap 9.0 (3-11); Bilirubin,Total 0.7 mg/dl (0.2-1.0); Blood Urea Nitrogen 20.0 mg/dl (6-23); Calcium 8.7 mg/dl (8.6-10.3); Carbon Dioxide 27.0 mmol/L (21-32); Chloride 99.0 mmol/L (98-107); Creatinine Clr Calc Pharmacy 50.6 ml/min; Globulin 3.2 gm/dl (2.5-4.0); Glucose 133.0 mg/dl (70-99(Fasting)); Lipase 6.0 U/L (11-82); Magnesium 1.7 mg/dl (1.7-2.4); Potassium 3.3 mmol/L (3.5-5.1); Sodium 135.0 mmol/L (136-145); Total Protein 6.5 gm/dl (6.0-8.3)
[2025-11-09 18:13] LABS: Dohle Bodies 1+; Immature Granulocytes # (auto) 0.03 K/uL (0.01-0.20); Immature Granulocytes % (auto) 0.5 %; Polychromasia 1+; Toxic Vacuolation 1+
[2025-11-09] MEDS: OPTIRAY 320 100ml IV ONE (18:22)
--- NOTE | 2025-11-09 18:50 | CT Scan Report ---
EXAMINATION: CT of the abdomen and pelvis performed after the administration of IV contrast TECHNIQUE: Helical CT images from the lung bases through the symphysis pubis were obtained with contrast. Coronal and sagittal reformatted images were generated at a workstation for further assessment. Dose reduction techniques were achieved by using automatic exposure control and/or adjustment of mA and/or kV according to patient size and/or use of iterative reconstruction technique. COMPARISON: 08/03/2024 HISTORY: Abdominal pain FINDINGS: Lower chest: No consolidation. No pleural effusion or pneumothorax. Liver: No suspicious liver lesions. Portal veins appear patent. Gallbladder: Cholecystectomy Spleen: Normal size. Pancreas: No suspicious pancreatic lesions. The pancreatic duct is not dilated. Adrenal glands: No adrenal nodules. Kidneys: No hydronephrosis or obstructing renal stones. Simple right renal cyst. Bladder / Pelvic organs: Unremarkable. Bowel: Abnormally dilated loops of small bowel which are fluid-filled throughout the proximal small bowel. The region of transition appears somewhat gradual and in the left upper quadrant, in the region of series 3 image 132. The large bowel demonstrates minimal stool. The appendix is unremarkable. Moderate distention and fluid filling of the stomach. Lymph nodes: No retroperitoneal, mesenteric, or pelvic lymphadenopathy. Peritoneum / Retroperitoneum: No free fluid or air within the abdomen. Vessels: No infrarenal aortic aneurysm. Bones and soft tissues: No suspicious lesion in the bones. Fixation and laminectomy changes throughout the lumbar spine. There is edema throughout the paraspinous soft tissues at the laminectomy bed. IMPRESSION: Several dilated and fluid-filled loops of small bowel seen proximally, as well as moderate distention of the stomach. A gradual region of transition appears to be seen in the left upper quadrant, and possibly represents adynamic ileus and enteritis, versus a partial obstruction is difficult to entirely exclude. Electronically signed by Zechariah Phillips 11-09-2025 6:50 PM
[2025-11-09] MEDS: POTASSIUM CHLORIDE / WTR 10 MEQ/100 ML PLCT IV SCH (18:52)
[2025-11-09] MEDS: MAGNESIUM SULFATE / D5W 1 GM/100 ML BAG IV STA (18:52)
[2025-11-09 18:59] LABS: Appearance Urine Clear (Clear); Bacteria Urine Automated 4+ (None Seen); Cast Urine Automated 0-2 /lpf (0-2); Glucose Urine UA 3+ (Negative); RBC Urine Automated 0-2 /hpf (0-2); WBC Urine Automated 21-50 /hpf (0-5)
--- NOTE | 2025-11-09 19:43 | History & Physical Report ---
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 Her evaluation was with mild anemia as well as thrombocytosis. Also with creatinine of 1.24, but this seems to be actually lower than her baseline because she has history of CKD. Sodium and potassium are slightly decreased with sodium 135 and potassium 3.3, with potassium and magnesium being replaced in ED. Abdominal imaging suggestive of ileus versus enteritis versus partial obstruction. UA is suspicious for infection. Admission for ileus versus enteritis, also in setting of possible UTI with some electrolyte abnormalities. #Gastroenteritis/? Ileus vs partial obstruction Recent back surgery 10/24/2025, was on antibiotics at that time, unsure what medications. 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 - CBC without leukocytosis or leukopenia; CMP Na 135, K 3.3 - BMP am - CTAP adynamic ileus versus enteritis versus partial obstruction - Stool studies pending - NPO - IVF w/ LR @ 100 mL/hr - Zofran prn N/V - Acetaminophen IV prn fever/pain, Dilaudid prn severe pain; Can trial Benadryl if needed for pain regimen given extensive pain medication allergies listed and limited options -- caution with ongoing opioid use - Zosyn IV received in ED -- pending stool studies - Gen sx consulted for am- appreciate input + recs #Asymptomatic bacteruria vs UTI No LUTS, did have a few days of diarrhea however and needed help from her with wiping 2/2 pain from bending over from recent back surgery; no prior history of Pseudomonas. Not diabetic. She has been on pain mediations, ? possible pain medications masking symptoms. - CBC without leukocytosis or leukopenia; CMP creatinine 1.24, BUN 20 - UA suspicious for infection; pending cx - CTAP notes bladder as "unremarkable" - Zosyn IV received in ED -- pending stool studies, can add back abx as appropriate #Hyponatremia/Hypokalemia H/o diarrhea and vomiting, ongoing. Received IVF + Mag sulfate 1g + KCl 30 mEq in ED. - Na 135, glucose 133 - K 3.3, Mg 1.7 - IVF as above - BMP am #Anemia/thrombocytosis- Denies bleeding per patient, she does have baseline anemia, also in setting of remote surgery. H&H 10.6/31.1, platelets 437 at admission - Iron panel, ferritin, vitamin B12, folate pending am #S/p spine surgery- S/p spine fusion internal fixation with hip bone grafting at [facility] on 10/24/2025. Has been utilizing opioid pain medications to manage pain, limited relief. Surgical site healing well. Taking cyclobenzaprine, opioids for management. Sutures scheduled to be removed on 11/12/2025. - Pain management as above #CKD stage II- H/o CKD stage III, baseline Cr appears to be between 1.2-1.3, Cr at admission 1.24 so technically no TANVI. On - continue home meds, BMP am #HTN- Amlodipine, losartan, spironolactone - continue #HLD- Pravastatin - continue #Insomnia- Trazodone - continue Dispo: Admit, med/sx VTE prophylaxis: SCDs This document was dictated utilizing [employer]. Please excuse any grammatical errors that may be secondary to use of this software. 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 Patient states that she had recent back surgery (spinal fusion and internal fixation of the lumbar spine with bone grafting to hip) on 10/24/2025, with discharge from the hospital on 10/28/2025 at [facility]. On 11/03/2025, the patient's daughter reports giving her mother 2 doses of MoM to help with the constipation and abdominal pain that she was experiencing. That next morning and for total duration of 4 days, the patient had multiple episodes of diarrhea per day. No blood or mucus. The diarrhea has since ceased, but she continues abdominal pain and new onset of nausea and vomiting. 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 No blood in vomit. She continues to have some nausea, but her main concern at present is the pain she is having from her recent surgical site. She states that the pain, at its worst, is a 9 out of 10 on the pain scale in her hip where bone graft was completed. She has been taking oxycodone which was then switched to hydrocodone as outpatient for pain management, and she has many different pain medication allergies listed. She states that her other complaint is that her ribs feel sore from the diarrhea and vomiting that has been occurring. She denies any fever or chills. No one else has similar symptoms. She states that she was on antibiotics in the other hospital, but is unsure which antibiotics she was on. She continues to have some abdominal pain, generalized but mainly localized to her ribs. She is still passing gas. Denies LUTS, but does state that during the time she was having diarrhea she had to have her help to clean her because bending down to do so was causing her too much back pain from her recent surgery. She denies chest pain, SOB, palpitations, numbness/tingling, fever/chills, URI symptoms, weakness, syncope, or falls. Nurses been coming in daily to help with the patient as she is s/p back surgery. ED evaluation revealed CBC without leukocytosis or leukopenia, H&H 10.6/31.1, platelets 437; CMP sodium 135, potassium 3.3, creatinine 1.24, glucose 133, alkaline phosphatase 120, albumin 3.3; lactate 1.4; magnesium 1.7, calcium 8.7; UA suspicious for infection; CTAP several dilated fluid filled loops of small bowel with moderate distention could represent ileus versus enteritis versus partial obstruction; EKG NSR and low voltage QRS at 87 bpm.; Provided with Plasma-Lyte 1L, Zosyn 4.5 g IV, KCl 10 mEq IV, Zofran 4 mg IV, mag sulfate 1 g IV, and hydromorphone 0.5 mg IV x [address] Barajas's attestation for adjustments/additions to treatment plan. Allergies Allergy/AdvReac Type Severity Reaction Status Date / Time peanut Allergy Severe Anaphylaxis Verified 11/09/25 19:23 codeine Allergy Intermediate swelling Verified 11/09/25 19:23 fentanyl Allergy Intermediate lip Verified 11/09/25 19:23 swelling ketorolac Allergy Intermediate swelling Verified 11/09/25 19:23 morphine Allergy Intermediate swelling Verified 11/09/25 19:23 propoxyphene Allergy Intermediate swelling Verified 11/09/25 19:23 latex Allergy Mild skin Verified 11/09/25 19:23 irriation. moxifloxacin AdvReac Severe FROM Verified 11/09/25 19:23 AVELOX-BECAME UNCONSIOUS prednisone AdvReac Severe Confusion Verified 11/09/25 19:23 Home Medications Medication Instructions Recorded Confirmed Type amlodipine 5 mg tablet 2.5 mg PO QAM 08/23/18 11/09/25 History spironolactone 50 mg tablet 50 mg PO QAM 08/23/18 11/09/25 History trazodone 50 mg tablet 50 mg PO HS 08/23/18 11/09/25 History cyclobenzaprine 10 mg tablet 10 mg PO BID PRN Muscle Spasm 03/08/22 11/09/25 History losartan 25 mg tablet 25 mg PO DAILY 03/08/22 11/09/25 History loratadine 10 mg disintegrating 10 mg PO DAILY PRN Allergy Symptoms 05/13/22 11/09/25 History tablet aspirin 81 mg tablet,delayed 81 mg PO DAILY 11/09/25 11/09/25 History release dapagliflozin propanediol 5 mg 5 mg PO DAILY 11/09/25 11/09/25 History tablet (Farxiga) hydrocodone 5 mg-acetaminophen 325 1 tab PO DIRECTED PRN Pain 11/09/25 11/09/25 History mg tablet pravastatin 40 mg tablet 40 mg PO DAILY 11/09/25 11/09/25 History Past Med/Surg History Problem List Acute cystitis (Acute) Acute dehydration (Acute) Gastroenteritis (Acute) Adynamic ileus (Acute) Asymptomatic bacteriuria Ileus Gastroenteritis Lumbar pain H/O: hysterectomy Cyst of right kidney (Chronic) Headache (Acute) Flank pain (Acute) Hyponatremia (Acute) Hypokalemia (Acute) Hypomagnesemia (Acute) Medical History Hx of pancreatitis Stage III chronic kidney disease Pancreatitis Cholecystectomy planned CKD (chronic kidney disease) stage 3, GFR 30-59 ml/min Surgical History History of back surgery L2-5 fusion 2020 History of hip surgery History of cholecystectomy Social History Smoking Status: Former smoker Tobacco Type: Cigarettes Second Hand Exposure: Yes; Do You Dip or Chew Tobacco: No; Tobacco Cessation Education Requested by Patient: No Hx Alcohol Use: No Hx Substance Use: No Preferred Language: [place] Communication Ability: Effective Policy Analyst Required: No Beliefs That Will Affect Care: None marital status: Current Living Situation: Spouse Current Living Situation Comment: Home with current occupational status: unemployed Other Information That Helps Us Care for You: No Feels Safe at Home: Yes Safety Concerns: Feels Safe At This Time Assistive Devices: Glasses and Walker Review of Systems Review of Systems: All systems reviewed & are unremarkable except as noted in Subjective Physical Exam Physical Exam: General: No acute distress, appears slightly uncomfortable Skin: Warm and dry Head: Normocephalic, atraumatic Eyes: PERRL, conjunctivae clear, sclera non-icteric ENT: External ear and ear canal without swelling; nose atraumatic; good dentition, tongue normal appearance, pharynx normal Neck: Supple, no LAD Cardio: RRR, no M/G/R, S1 and S2 normal Resp: No respiratory distress, Lungs CTA in all lobes bilaterally, no wheezes, rales, or rhonchi Abdomen: Soft, symmetric, nontender, mild distention, no signs of surgical abdomen; No masses or hepatosplenomegaly; Bowel sounds hypoactive throughout MSK: No deformities; pulses palpable and equal; no edema. Neuro: Awake, alert; Sensation intact bilaterally; CN grossly intact Psych: Appropriate mood and affect; good judgement and insight. Daughter, February, present in room at time of visit. Results & Data Results & Data Vital Signs (Past 12 Hours) Vital Signs Temp Pulse Pulse Resp BP BP Pulse Ox 11/09/25 19:22 80 25 H 129/56 L 96 11/09/25 17:25 90 21 98 11/09/25 17:25 36.5 C 90 21 135/65 98 11/09/25 17:24 92 H O2 Del Method 11/09/25 19:22 Room Air 12/12/25 17:25 Room Air 11/09/25 17:25 Room Air 11/09/25 17:24 Laboratory Results 11/09/25 18:31 Urine Culture - Pending Urine,Clean Catch 11/09/25 11/09/25 18:31 17:24 WBC 6.08 RBC 3.46 L Hgb 10.6 L Hct 31.1 L MCV 89.9 MCH 30.6 MCHC 34.1 RDW Std Deviation 44.7 RDW Coeff of Beth 13.8 Plt Count 437 H MPV 8.5 L Immature Gran % (Auto) 0.5 Neut % (Auto) 76.8 Lymph % (Auto) 11.0 [place] % (Auto) 10.0 Eos % (Auto) 1.0 Baso % (Auto) 0.7 Neut # (Auto) 4.67 Lymph # (Auto) 0.67 L [place] # (Auto) 0.61 H Eos # (Auto) 0.06 Baso # (Auto) 0.04 Immature Gran # (Auto) 0.03 Toxic Vacuolation 1+ Dohle Bodies 1+ Polychromasia 1+ Sodium 135 L Potassium 3.3 L Chloride 99 Carbon Dioxide 27 Anion Gap 9 BUN 20 Creatinine 1.24 H Est Cr Clr Drug Dosing 50.6 eGFR 46.82 BUN/Creatinine Ratio 16.1 Glucose 133 H Lactate 1.4 Calcium 8.7 Magnesium 1.7 Total Bilirubin 0.7 AST 17 ALT 14 Alkaline Phosphatase 120 H Total Protein 6.5 Albumin 3.3 L Globulin 3.2 Albumin/Globulin Ratio 1.0 Lipase 6 L Urine Color Yellow Urine Appearance Clear Urine pH 7.0 Ur Specific [place] 1.028 Urine Protein 1+ H Urine Glucose (UA) 3+ H Urine Ketones Trace H Urine Blood Negative Urine Nitrite Positive A Urine Bilirubin Negative Urine Urobilinogen Negative Ur Leukocyte Esterase Trace H Urine WBC (Auto) 21-50 H Urine RBC (Auto) 0-2 U Hyaline Cast (Auto) 0-2 U Epithel Cells (Auto) 3-5 H Urine Bacteria (Auto) 4+ H Urine Comment Diagnostic Findings Abdomen/Pelvis CT 11/09/25 17:13 EXAMINATION: CT of the abdomen and pelvis performed after the administration of IV contrast TECHNIQUE: Helical CT images from the lung bases through the symphysis pubis were obtained with contrast. Coronal and sagittal reformatted images were generated at a workstation for further assessment. Dose reduction techniques were achieved by using automatic exposure control and/or adjustment of mA and/or kV according to patient size and/or use of iterative reconstruction technique. COMPARISON: 08/03/2024 HISTORY: Abdominal pain FINDINGS: Lower chest: No consolidation. No pleural effusion or pneumothorax. Liver: No suspicious liver lesions. Portal veins appear patent. Gallbladder: Cholecystectomy Spleen: Normal size. Pancreas: No suspicious pancreatic lesions. The pancreatic duct is not dilated. Adrenal glands: No adrenal nodules. Kidneys: No hydronephrosis or obstructing renal stones. Simple right renal cyst. Bladder / Pelvic organs: Unremarkable. Bowel: Abnormally dilated loops of small bowel which are fluid-filled throughout the proximal small bowel. The region of transition appears somewhat gradual and in the left upper quadrant, in the region of series 3 image 132. The large bowel demonstrates minimal stool. The appendix is unremarkable. Moderate distention and fluid filling of the stomach. Lymph nodes: No retroperitoneal, mesenteric, or pelvic lymphadenopathy. Peritoneum / Retroperitoneum: No free fluid or air within the abdomen. Vessels: No infrarenal aortic aneurysm. Bones and soft tissues: No suspicious lesion in the bones. Fixation and laminectomy changes throughout the lumbar spine. There is edema throughout the paraspinous soft tissues at the laminectomy bed. IMPRESSION: Several dilated and fluid-filled loops of small bowel seen proximally, as well as moderate distention of the stomach. A gradual region of transition appears to be seen in the left upper quadrant, and possibly represents adynamic ileus and enteritis, versus a partial obstruction is difficult to entirely exclude. Electronically signed by Zechariah Phillips 11-09-2025 6:50 PM Medications Administered Plasma-Lyte 1L Zosyn 4.5 g IV KCl 10 mEq IV Zofran 4 mg IV Mag sulfate 2 g IV Hydromorphone 0.5 mg IV x 2 ECG Additional Comments: NSR, low voltage QRS 87 bpm, DC 178, QRS 94, QT/QTc 364/438, PRT 53/44/65 Code Status & VTE Plan Code Status Full Supervising Physician Co-Signing Physician Notes Attending addendum: I have physically seen this patient, have supervised the BRET's activities, and agree with the H&P unless as otherwise noted. Assessment and Plan: The patient is a 70-year-old female past medical history including CKD stage III, history of pancreatitis, hypertension, and recent back surgery on 10/24/2025, who presents to the emergency department for vomiting and diarrhea for 6 days prior to arrival. #Gastroenteritis/Ileus versus partial small bowel obstruction- Recent back surgery on 10/24/2025, for which she was on antibiotics at that time, will check stool for C. difficile. CT scan of abdomen and pelvis which shows adynamic ileus versus enteritis versus partial obstruction Stool PCR and C. difficile testing pending N.p.o. LR 100 mL/h Zofran 4 mg IV every 6 hours as needed Acetaminophen 1 g IV every 8 hours as needed for mild pain or fever Dilaudid IV as needed moderate to severe pain as noted Zosyn 4.5 g IV given in the ED. Hold on further dosing until review of stool studies Consult general surgery #Abnormal urine- Urine looks infected, however, patient has no symptoms at this time Follow urine culture sensitivity CT scan of abdomen pelvis/bladder is unremarkable Received Zosyn 4.5 g IV in the ED. #Hypokalemia/hypomagnesemia- Potassium 3.3 and magnesium 1.7. The ED received potassium and magnesium supplementation Recheck laboratories in a.m. Remaining orders and notations as noted PG Care Time/CCT Total # of Minutes Spent Total Time Spent with Patient: Total time spent is greater than 50% in coordination of care (as documented) at patient's floor/unit and/or counseling patient: Coding Level of Care Code 08789 INT INP/OBS CARE 3/75MIN Diagnoses Gastroenteritis K52.9 Ileus K56.7 Asymptomatic bacteriuria R82.71 Hyponatremia E87.1 Hypokalemia E87.6
[2025-11-09] MEDS: PIPERACILLIN/TAZOBACTAM 4.5 GM/100 ML BAG IV ONE (20:04)
[2025-11-09] MEDS ORDERED: HYDROmorphone INJ 0.5 MG/0.5 ML SYR IV PRN (20:10)
[2025-11-09] MEDS ORDERED: ACETAMINOPHEN 1,000 MG/100 ML VIAL IV PRN (20:10)
[2025-11-09] MEDS: LACTATED RINGER'S 1,000 ML IV SCH (20:53)
[2025-11-09] MEDS: HYDROmorphone INJ 0.5 MG/0.5 ML SYR IV PRN (20:58)
[2025-11-09] MEDS: CYCLOBENZAPRINE HCL 10 MG TAB PO PRN (23:16)
[2025-11-10] MEDS: ONDANSETRON INJ 2 MG/ML 2 ML VIAL IV PRN (02:27)
[2025-11-10] MEDS: ONDANSETRON INJ 2 MG/ML 2 ML VIAL IV STA (04:42)
[2025-11-10 07:02] LABS: Folate (Folic Acid),Ser orPlas 11.05 ng/ml (>5.38)
[2025-11-10 07:03] LABS: Vitamin B12 258.0 pg/ml (180-914)
[2025-11-10 07:53] LABS: Anion Gap 8.0 (3-11); Blood Urea Nitrogen 16.0 mg/dl (6-23); Calcium 8.4 mg/dl (8.6-10.3); Carbon Dioxide 28.0 mmol/L (21-32); Chloride 101.0 mmol/L (98-107); Creatinine Clr Calc Pharmacy 51.3 ml/min; Ferritin 141.2 ng/ml (8-388); Glucose 103.0 mg/dl (70-99(Fasting)); Iron 14.0 mcg/dl (35-150); Potassium 4.1 mmol/L (3.5-5.1); Sodium 137.0 mmol/L (136-145); Total Iron Binding Cap Calc 221.0 mcg/dl (250-450); Transferrin 158.0 mg/dl (200-360); Transferrin (FE) Percent Satur 6.0 % (15-50)
--- NOTE | 2025-11-10 08:51 | Hospitalist Progress Note ---
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 Her evaluation was with mild anemia as well as thrombocytosis. Also with creatinine of 1.24, but this seems to be actually lower than her baseline because she has history of CKD. Sodium and potassium are slightly decreased with sodium 135 and potassium 3.3, with potassium and magnesium being replaced in ED. Abdominal imaging suggestive of ileus versus enteritis versus partial obstruction. UA is suspicious for infection. Admission for ileus versus enteritis, also in setting of possible UTI with some electrolyte abnormalities. #Gastroenteritis/? Ileus vs partial obstruction Recent back surgery 10/24/2025, was on antibiotics at that time, unsure what medications. 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 - CTAP adynamic ileus versus enteritis versus partial obstruction - Stool studies pending - Diet Progressed to clears - IVF w/ LR @ 100 mL/hr - Zofran prn N/V - Acetaminophen IV prn fever/pain, oxycodone as needed pain; Can trial Benadryl if needed for pain regimen given extensive pain medication allergies listed and limited options -- caution with ongoing opioid use - Zosyn IV received in ED -- pending stool studies - Gen sx consulted for am- appreciate input + recs #Asymptomatic bacteruria vs UTI No LUTS, did have a few days of diarrhea however and needed help from her with wiping 2/2 pain from bending over from recent back surgery; no prior history of Pseudomonas. Not diabetic. She has been on pain mediations, ? possible pain medications masking symptoms. - CBC without leukocytosis or leukopenia; CMP creatinine 1.24, BUN 20 - UA suspicious for infection; pending cx - CTAP notes bladder as "unremarkable" - Zosyn IV received in ED -- pending stool studies, can add back abx as appropriate #Hyponatremia/Hypokalemia H/o diarrhea and vomiting, ongoing. Received IVF + Mag sulfate 1g + KCl 30 mEq in ED. - trend BMP #Anemia/thrombocytosis- Denies bleeding per patient, she does have baseline anemia, also in setting of remote surgery. H&H 10.6/31.1, platelets 437 at admission - Iron panel, ferritin, vitamin B12, folate pending am #S/p spine surgery- S/p spine fusion internal fixation with hip bone grafting at [facility] on 10/24/2025. Has been utilizing opioid pain medications to manage pain, limited relief. Surgical site healing well. Taking cyclobenzaprine, opioids for management. Sutures scheduled to be removed on 11/12/2025. - Pain management as above #CKD stage II- H/o CKD stage III, baseline Cr appears to be between 1.2-1.3, Cr at admission 1.24 so technically no TANVI. On - continue home meds, BMP am #HTN- Amlodipine, losartan, spironolactone - continue #HLD- Pravastatin - continue #Insomnia- Trazodone - continue Dispo: med/sx VTE prophylaxis: SCDs Admission and Anticipated Discharge Date Admission Date: November 09, 2025 Subjective patient was laying in bed today in no acute distress. Patient states she is feeling much improved from yesterday, and is hopeful to get out out of here as soon as possible due to an appointment she has in [place] to remove stitches from her previous back surgery. Patient states she still has mild abdominal pain, but otherwise denies cough congestion shortness of breath, chest pain, palpitations, nausea, vomiting, diarrhea, and weakness. Review of Systems Review of Systems: All systems reviewed & are unremarkable except as noted in Subjective Physical Exam Physical Exam: General: Pt is a 70 y/o obese F in NAD in bed. VS: reviewed -unremarkable Skin: Warm and dry; no lesions or ulcerations Respiratory: CTA bilat, no adventitious sounds noted. Chest expansion is full and symmetrical Cardio: RRR no murmurs Abdomen: Round, normoactive BS x4, nontender to palpation MSK: FROM of extremities, no deformities Extremities: no edema Neuro: A&Ox4, cooperative Results & Data Results & Data Vital Signs (Past 12 Hours) Vital Signs Temp Pulse Pulse Pulse Resp BP BP 11/10/25 07:15 97.7 F 85 16 124/62 11/09/25 22:46 97.9 F 87 16 127/71 11/09/25 22:43 97.9 F 87 16 122/71 11/09/25 21:49 85 26 H 123/59 L 11/09/25 21:00 85 17 141/61 H Pulse Ox O2 Del Method 11/10/25 07:15 94 Room Air 11/09/25 22:46 96 Room Air 11/09/25 22:43 96 Room Air 11/09/25 21:49 95 Room Air 11/09/25 21:00 99 Room Air Laboratory Results Reviewed: CBC, BMP Diagnostic Findings Reviewed: CTAP PG Care Time/CCT Total # of Minutes Spent Total Time Spent with Patient: Total time spent is greater than 50% in coordination of care (as documented) at patient's floor/unit and/or counseling patient: Coding Level of Care Code 59141 SUB INP/OBS CARE 2/35MIN Diagnoses Gastroenteritis K52.9 Ileus K56.7 Asymptomatic bacteriuria R82.71 Hyponatremia E87.1 Hypokalemia E87.6
[2025-11-10] MEDS: ASPIRIN 81 MG ECTAB PO SCH (09:37)
[2025-11-10] MEDS: LOSARTAN POTASSIUM 25 MG TAB PO SCH (09:38)
[2025-11-10] MEDS: PRAVASTATIN SOD 40 MG TAB PO SCH (09:38)
[2025-11-10] MEDS: SPIRONOLACTONE 25 MG TAB PO SCH (09:38)
--- NOTE | 2025-11-10 10:21 | Surgery Consultation ---
Date of Consultation November 10, 2025 Assessment & Plan (1) Gastroenteritis: (2) Adynamic ileus: (3) Ileus: Plan 70-year-old woman presents barely 3 weeks status post back surgery with what appears to be an ileus. Does not appear to be an obstruction. She is passing flatus. No surgical indications at this time. Continue conservative management with bowel rest. Will follow peripherally. History of Present Illness Reason for Consultation: ileus versus obstruction Requesting Physician: Andrea Payne MD Attending Physician: Andrea Payne MD History of Present Illness 70-year-old woman presents 3 weeks status post a back surgery in [place] with nausea. She was having constipation issues following surgery and was placed on laxatives. She had extreme diarrhea until Wednesday and then subsequently has had some nausea. She presents with ongoing nausea. She is passing some flatus. CT scan demonstrates ileus versus enteritis versus possible partial small bowel obstruction. Allergies Allergy/AdvReac Type Severity Reaction Status Date / Time peanut Allergy Severe Anaphylaxis Verified 11/09/25 19:23 codeine Allergy Intermediate swelling Verified 11/09/25 19:23 fentanyl Allergy Intermediate lip Verified 11/09/25 19:23 swelling ketorolac Allergy Intermediate swelling Verified 11/09/25 19:23 morphine Allergy Intermediate swelling Verified 11/09/25 19:23 propoxyphene Allergy Intermediate swelling Verified 11/09/25 19:23 latex Allergy Mild skin Verified 11/09/25 19:23 irriation. moxifloxacin AdvReac Severe FROM Verified 11/09/25 19:23 AVELOX-BECAME UNCONSIOUS prednisone AdvReac Severe Confusion Verified 11/09/25 19:23 Home Medications Medication Instructions Recorded Confirmed Type amlodipine 5 mg tablet 2.5 mg PO QAM 08/23/18 11/09/25 History spironolactone 50 mg tablet 50 mg PO QAM 08/23/18 11/09/25 History trazodone 50 mg tablet 50 mg PO HS 08/23/18 11/09/25 History cyclobenzaprine 10 mg tablet 10 mg PO BID PRN Muscle Spasm 03/08/22 11/09/25 History losartan 25 mg tablet 25 mg PO DAILY 03/08/22 11/09/25 History loratadine 10 mg disintegrating 10 mg PO DAILY PRN Allergy Symptoms 05/13/22 11/09/25 History tablet aspirin 81 mg tablet,delayed 81 mg PO DAILY 11/09/25 11/09/25 History release dapagliflozin propanediol 5 mg 5 mg PO DAILY 11/09/25 11/09/25 History tablet (Farxiga) hydrocodone 5 mg-acetaminophen 325 1 tab PO DIRECTED PRN Pain 11/09/25 11/09/25 History mg tablet pravastatin 40 mg tablet 40 mg PO DAILY 11/09/25 11/09/25 History Patient History Medical History Hx of pancreatitis Stage III chronic kidney disease Pancreatitis Cholecystectomy planned CKD (chronic kidney disease) stage 3, GFR 30-59 ml/min Surgical History History of back surgery L2-5 fusion 2020 History of hip surgery History of cholecystectomy Social History Smoking Status: Former smoker Tobacco Type: Cigarettes Second Hand Exposure: Yes; Do You Dip or Chew Tobacco: No; Tobacco Cessation Education Requested by Patient: No Hx Alcohol Use: No Hx Substance Use: No Preferred Language: Palestinian Communication Ability: Effective Secretarial Stenographer Required: No Beliefs That Will Affect Care: None marital status: Current Living Situation: Spouse Current Living Situation Comment: Home with current occupational status: unemployed Other Information That Helps Us Care for You: No Feels Safe at Home: Yes Safety Concerns: Feels Safe At This Time Assistive Devices: Glasses and Walker Review of Systems Review of Systems: All systems reviewed & are unremarkable except as noted in HPI & below Physical Exam Constitutional: WD/WN, vitals as above Eyes: PERRL, conjunctivae normal, anicteric sclerae Neck: trachea midline, no thyromegaly Respiratory: normal respiratory effort; no respiratory distress Cardiovascular: Rate/Rhythm: regular rate and regular rhythm Gastrointestinal (Abdomen): Inspection/Auscultation: abdomen normal to inspection; abdomen not distended Percussion/Palpation: + abdomen tender ( mild diffuse) and abdomen soft; no guarding and abdomen not rigid Skin: no rashes, warm and dry Psychiatric: A+Ox3, euthymic affect Results & Data Vital Signs (Past 12 Hours) Vital Signs Temp Pulse Resp BP Pulse Ox O2 Del Method 11/10/25 07:15 36.5 C 85 16 124/62 94 Room Air 11/09/25 22:46 36.6 C 87 16 127/71 96 Room Air 11/09/25 22:43 36.6 C 87 16 122/71 96 Room Air Laboratory Results 11/10/25 11/09/25 11/09/25 Range/Units 05:49 18:31 17:24 WBC 6.08 (4.8-10.8) K/ul RBC 3.46 L (4.20-5.40) M/uL Hgb 10.6 L (12.0-16.0) g/dL Hct 31.1 L (37.0-47.0) % MCV 89.9 (80.0-100.0) fL MCH 30.6 (25.0-34.0) pg MCHC 34.1 (32.0-36.0) g/dL RDW Std Deviation 44.7 (36.4-46.3) fL RDW Coeff of Beth 13.8 (11.5-14.5) % Plt Count 437 H (130-400) K/uL MPV 8.5 L (9.4-12.4) fL Immature Gran % (Auto) 0.5 % Neut % (Auto) 76.8 % Lymph % (Auto) 11.0 % [place] % (Auto) 10.0 % Eos % (Auto) 1.0 % Baso % (Auto) 0.7 % Neut # (Auto) 4.67 (1.40-6.50) K/uL Lymph # (Auto) 0.67 L (1.20-3.40) K/uL [place] # (Auto) 0.61 H (0.11-0.59) K/uL Eos # (Auto) 0.06 (0.00-0.50) K/uL Baso # (Auto) 0.04 (0.00-0.20) K/uL Immature Gran # (Auto) 0.03 (0.01-0.20) K/uL Toxic Vacuolation 1+ Dohle Bodies 1+ Polychromasia 1+ Sodium 137 135 L (136-145) mmol/L Potassium 4.1 D 3.3 L (3.5-5.1) mmol/L Chloride 101 99 (98-107) mmol/L Carbon Dioxide 28 27 (21-32) mmol/L Anion Gap 8 9 (3-11) BUN 16 20 (6-23) mg/dl Creatinine 1.21 H 1.24 H (0.6-1.2) mg/dl Est Cr Clr Drug Dosing 51.3 50.6 ml/min eGFR 48.21 46.82 BUN/Creatinine Ratio 13.2 16.1 (10-20) Glucose 103 H 133 H (70-99(Fasting)) mg/dl Lactate 1.4 (0.4-2.0) mmol/L Calcium 8.4 L 8.7 (8.6-10.3) mg/dl Magnesium 1.7 (1.7-2.4) mg/dl Iron 14 L (35-150) mcg/dl TIBC 221 L (250-450) mcg/dl Transferrin 158 L (200-360) mg/dl Transferrin % Sat 6 L (15-50) % Ferritin 141.2 (8-388) ng/ml Total Bilirubin 0.7 (0.2-1.0) mg/dl AST 17 (13-39) U/L ALT 14 (7-52) U/L Alkaline Phosphatase 120 H (34-104) U/L Total Protein 6.5 (6.0-8.3) gm/dl Albumin 3.3 L (3.4-5.0) gm/dl Globulin 3.2 (2.5-4.0) gm/dl Albumin/Globulin Ratio 1.0 (0.9-2) Lipase 6 L (11-82) U/L Vitamin B12 258 (180-914) pg/ml Folate 11.05 (>5.38) ng/ml Urine Color Yellow Urine Appearance Clear (Clear) Urine pH 7.0 (4.5-7.5) Ur Specific [place] 1.028 (1.000-1.030) Urine Protein 1+ H (Negative) Urine Glucose (UA) 3+ H (Negative) Urine Ketones Trace H (Negative) Urine Blood Negative (Negative) Urine Nitrite Positive A (Negative) Urine Bilirubin Negative (Negative) Urine Urobilinogen Negative (Negative) Ur Leukocyte Esterase Trace H (Negative) Urine WBC (Auto) 21-50 H (0-5) /hpf Urine RBC (Auto) 0-2 (0-2) /hpf U Hyaline Cast (Auto) 0-2 (0-2) /lpf U Epithel Cells (Auto) 3-5 H (0-2) /hpf Urine Bacteria (Auto) 4+ H (None Seen) Urine Comment Diagnostic Findings EXAMINATION: CT of the abdomen and pelvis performed after the administration of IV contrast TECHNIQUE: Helical CT images from the lung bases through the symphysis pubis were obtained with contrast. Coronal and sagittal reformatted images were generated at a workstation for further assessment. Dose reduction techniques were achieved by using automatic exposure control and/or adjustment of mA and/or kV according to patient size and/or use of iterative reconstruction technique. COMPARISON: 08/03/2024 HISTORY: Abdominal pain FINDINGS: Lower chest: No consolidation. No pleural effusion or pneumothorax. Liver: No suspicious liver lesions. Portal veins appear patent. Gallbladder: Cholecystectomy Spleen: Normal size. Pancreas: No suspicious pancreatic lesions. The pancreatic duct is not dilated. Adrenal glands: No adrenal nodules. Kidneys: No hydronephrosis or obstructing renal stones. Simple right renal cyst. Bladder / Pelvic organs: Unremarkable. Bowel: Abnormally dilated loops of small bowel which are fluid-filled throughout the proximal small bowel. The region of transition appears somewhat gradual and in the left upper quadrant, in the region of series 3 image 132. The large bowel demonstrates minimal stool. The appendix is unremarkable. Moderate distention and fluid filling of the stomach. Lymph nodes: No retroperitoneal, mesenteric, or pelvic lymphadenopathy. Peritoneum / Retroperitoneum: No free fluid or air within the abdomen. Vessels: No infrarenal aortic aneurysm. Bones and soft tissues: No suspicious lesion in the bones. Fixation and laminectomy changes throughout the lumbar spine. There is edema throughout the paraspinous soft tissues at the laminectomy bed. IMPRESSION: Several dilated and fluid-filled loops of small bowel seen proximally, as well as moderate distention of the stomach. A gradual region of transition appears to be seen in the left upper quadrant, and possibly represents adynamic ileus and enteritis, versus a partial obstruction is difficult to entirely exclude. Electronically signed by Zechariah Phillips 11-09-2025 6:50 PM Dictated: 11/09/[id number] Transcribed:
[2025-11-10] MEDS ORDERED: ONDANSETRON 4 MG OD TAB PO PRN (16:01)
--- NOTE | 2025-11-11 09:31 | Surgery Progress Note ---
Date of Service November 11, 2025 Assessment & Plan (1) Gastroenteritis: (2) Adynamic ileus: (3) Ileus: Plan 70-year-old woman presents barely 3 weeks status post back surgery with what appears to be an ileus. Does not appear to be an obstruction. She is passing flatus. No surgical indications at this time. Continue conservative management with bowel rest. Will follow peripherally. 11/11/2025 - doing well. ok to discharge from surgical perspective Admission and Anticipated Discharge Date Admission Date: November 09, 2025 Subjective doing well. no nausea. no vomiting. passing flatus; no abdominal pain Physical Exam Gastrointestinal (Abdomen): Inspection/Auscultation: abdomen normal to inspection; abdomen not distended Percussion/Palpation: + abdomen tender ( mild diffuse) and abdomen soft; no guarding and abdomen not rigid Results & Data Vital Signs (Past 12 Hours) Vital Signs Temp Pulse Resp BP Pulse Ox O2 Del Method 11/11/25 07:25 36.6 C 78 20 110/69 93 Room Air 11/10/25 22:43 36.8 C 75 16 113/69 93 Room Air
--- NOTE | 2025-11-11 14:16 | Discharge Summary ---
"Discharge Summary Date of Service November 11, 2025 Principal Dx & Hospital Course #1 = Principal Diagnosis (1) Gastroenteritis: (2) Ileus: (3) Asymptomatic bacteriuria: (4) Hyponatremia: (5) Hypokalemia: Plan #Gastroenteritis | Ileus vs partial obstruction - 70-year-old female PMHx CKD stage III, history of pancreatitis, HTN, and recent back surgery on 10/24/2025 presenting for vomiting and diarrhea for 6 days [employer]. Abdominal imaging in ED suggestive of ileus versus enteritis versus partial obstruction. Pt placed on bowel rest and admitted for further evaluation and care. While pt was in hospital, General Surgery was consulted and confirmed that surgical intervention was not necessary for this patient. Pt's diet was slowly progressed and she was able to produce a small BM on 11/11. Pt should continue with a low-fiber diet and slowly progress. Pt should follow-up with PCP within one week of discharge from the hospital. #Asymptomatic bacteruria vs UTI - UA was suspicious for bacteria, nitrites, and WBCs - culture confirmed E.coli infection; Pt has no complaint of sx and no history of Pseudomonas infection. #Hyponatremia/Hypokalemia - RESOLVED #Anemia/thrombocytosis- Denies bleeding per patient, she does have baseline anemia, also in setting of remote surgery. H&H 10.6/31.1, platelets 437 at admission. Iron panel, ferritin, vitamin B12, folate were checked and revealed low Iron - pt may pursue iron supplementation in future. Was not provided in hospital d/t constipating effects of iron supplementation with the presence of Ileus vs partial obstruction. #S/p spine surgery- S/p spine fusion internal fixation with hip bone grafting at [facility] on 10/24/2025. Continue Pain management as per surgical team. Pt should maintain appointment for suture removal on 11/12/25. #CKD stage II- H/o CKD stage III, baseline Cr appears to be between 1.2-1.3, Cr at admission 1.24 On Farxiga - continue home meds #HTN- Amlodipine, losartan, spironolactone - continue #HLD- Pravastatin - continue #Insomnia- Trazodone - continue Dispo: Home, Self-care Admission HPI Per Admitting Provider 70-year-old female PMHx CKD stage III, history of pancreatitis, HTN, and recent back surgery on 10/24/2025 presenting for vomiting and diarrhea for 6 days [employer]ING [employer]. Patient states that she had recent back surgery (spinal fusion and internal fixation of the lumbar spine with bone grafting to hip) on 10/24/2025, with discharge from the hospital on 10/28/2025 at [facility]. On 11/03/2025, the patient's daughter reports giving her mother 2 doses of MoM to help with the constipation and abdominal pain that she was experiencing. That next morning and for total duration of 4 days, the patient had multiple episodes of diarrhea per day. No blood or mucus. The diarrhea has since ceased, but she continues abdominal pain and new onset of nausea and vomiting. States the night [employer] she ate chicken that was cooked by her , and then woke up the morning of arrival with nausea and ongoing vomiting. No blood in vomit. She continues to have some nausea, but her main concern at present is the pain she is having from her recent surgical site. She states that the pain, at its worst, is a 9 out of 10 on the pain scale in her hip where bone graft was completed. She has been taking oxycodone which was then switched to hydrocodone as outpatient for pain management, and she has many different pain medication allergies listed. She states that her other complaint is that her ribs feel sore from the diarrhea and vomiting that has been occurring. She denies any fever or chills. No one else has similar symptoms. She states that she was on antibiotics in the other hospital, but is unsure which antibiotics she was on. She continues to have some abdominal pain, generalized but mainly localized to her ribs. She is still passing gas. Denies LUTS, but does state that during the time she was having diarrhea she had to have her help to clean her because bending down to do so was causing her too much back pain from her recent surgery. She denies chest pain, SOB, palpitations, numbness/tingling, fever/chills, URI symptoms, weakness, syncope, or falls. Nurses been coming in daily to help with the patient as she is s/p back surgery. ED evaluation revealed CBC without leukocytosis or leukopenia, H&H 10.6/31.1, platelets 437; CMP sodium 135, potassium 3.3, creatinine 1.24, glucose 133, alkaline phosphatase 120, albumin 3.3; lactate 1.4; magnesium 1.7, calcium 8.7; UA suspicious for infection; CTAP several dilated fluid filled loops of small bowel with moderate distention could represent ileus versus enteritis versus partial obstruction; EKG NSR and low voltage QRS at 87 bpm.; Provided with Plasma-Lyte 1L, Zosyn 4.5 g IV, KCl 10 mEq IV, Zofran 4 mg IV, mag sulfate 1 g IV, and hydromorphone 0.5 mg IV x [address] Please see Dr[address] Barajas's attestation for adjustments/additions to treatment plan. Discharge Exam General: Pt is a 70 y/o obese F in NAD in bed. VS: reviewed -unremarkable Skin: Warm and dry; no lesions or ulcerations Respiratory: CTA bilat, no adventitious sounds noted. Chest expansion is full and symmetrical Cardio: RRR no murmurs Abdomen: Round, normoactive BS x4, nontender to palpation MSK: FROM of extremities, no deformities Extremities: no edema Neuro: A&Ox4, cooperative Discharge Plan Discharge Items Patient Disposition: Home - Self-Care Reason For Visit: ILEUS, GASTROENTERITIS, UTI, HYPONAT, HYPOKAL Discharge Diagnosis: Ileus vs Partial Bowel Obstruction, UTI Condition on Discharge: Fair Activity: Resume your previous activity Non-emergency contact: Primary Care Provider Call non-emergency contact if: you have any medication questions, your symptoms worsen, your pain is not controlled, your pain is worsening and you have a fever Follow-up/Referrals: Enrique Haq [Primary Care Provider] - (Follow-up within one week of discharge) Diet: Low Fiber Addtl Attending Provider Instructions: Hospital Course: You were admitted to the hospital after experiencing vomiting and diarrhea. While you were in the ED, imaging revealed that a blockage may have been present in your bowels. As a result, you were placed on bowel rest. The general surgery team was consulted and did not feel that there was a need for surgical intervention. Your diet was then slowly progressed and you were able to have a small bowel movement on 11/11, day of discharge. It was additionally discovered that you have a UTI during your inpatient stay, an antibiotic will be sent to your pharmacy. Discharge instructions: -Continue with low-fiber foods over the next 24-48 hours and slowly add back in foods with fiber -Low Fiber foods include: Grains such as white bread, white rice, and crackers Fruits that are peeled and well cooked Vegetables that are peeled and well cooked -Macrobid will be sent to your pharmacy to treat your UTI, please take twice daily for 5 days -Please continue to drink plenty of water, it's important that you stay hydrat ed. -Please maintain the appointment scheduled to have the stitches removed from your back scheduled for 11/12 -You should follow-up with your PCP within one week of discharge from the hospital Medications: Your medication list has been reviewed and reconciled upon discharge to ensure accuracy and continuity of care. An updated list of all your medications is included with your hospital discharge paperwork. Please review this list closely, and make note of any changes. We sent a new medication called Macrobid to your pharmacy. Take 2 times a day for the next 5 days. Start this evening. This is an antibiotic to help with your UTI . Take your medications as instructed; do not skip a dose of your medicines. Make sure all of your doctors know every medicine you are taking (including ove h-nhd-kardvuo medicines, vitamins, and supplements). Call your primary care provider before taking any new medicines (including over- the-counter medicines, vitamins, and supplements), because some of these may interact with your current medications, or may make your symptoms worse. Tell your primary care provider if you cannot afford your medications. Activity: You can do normal everyday activities as your body allows. Take rest breaks if you feel tired. Do not overexert. Stop activity if you have pain, shortness of breath or feel dizzy. Follow-up appointments: Make an appointment with your primary care physician within one week of discharge. A copy of this summary will be sent to them. Every time you see your primary care physician, or any other doctor, bring your medication list, and a list of questions. CONTACT YOUR PRIMARY CARE PROVIDER if you experience any of the following: Shortness of breath or difficulty breathing Fevers or chills Feeling tired with normal activity or experiencing dizziness or fainting Difficulty following your treatment plan, or difficulty taking medications CALL 911 OR GO TO THE EMERGENCY DEPARTMENT if you experience any of the following: Severe abdominal pain or nausea/vomiting Severe chest pain, or chest pain that radiates (moves) to your jaw or arm Sudden, severe shortness of breath or difficulty breathing Thank you for allowing us to participate in your care. Pending Studies at Discharge: No Stand-Alone Forms: [facility], Smoking Cessation Medications and DC Order Prescriptions: New nitrofurantoin monohyd/m-cryst [Macrobid] 100 mg capsule 100 mg PO BID 5 Days Qty: 10 0RF Rx Instructions: must administer with a meal/food Continued loratadine 10 mg tablet,disintegrating 10 mg PO DAILY PRN (Reason: Allergy Symptoms) trazodone 50 mg tablet 50 mg PO HS amlodipine 5 mg tablet 2.5 mg PO QAM spironolactone 50 mg tablet 50 mg PO QAM losartan 25 mg tablet 25 mg PO DAILY cyclobenzaprine 10 mg tablet 10 mg PO BID PRN (Reason: Muscle Spasm) pravastatin 40 mg tablet 40 mg PO DAILY hydrocodone-acetaminophen 5-325 mg tablet 1 tab PO DIRECTED PRN (Reason: Pain) dapagliflozin propanediol [Farxiga] 5 mg tablet 5 mg PO DAILY aspirin 81 mg Tablet,Delayed Release (Dr/Ec) 81 mg PO DAILY Discharge Orders: Discharge Order (Routine); Ordered 11/11/25 Ordered By: Jovanna Del Toro Admission Data Admit Date/Time: 11/09/25 20:10 Attending Provider: Andrea Payne Admit Provider: Raul Barajas Primary Care Provider: Enrique Haq Other Providers: Raul Barajas; Arvind Ngo; Darwin Christianson [facility] Hospital Stay Data Consultations 11/09/25 19:11 ED Decision to Admit Stat 11/10/25 07:00 Consult General Surgery Routine Diagnostic Imagining Performed 11/09/25 17:13 CT abd pelvis IV con only Stat Discharge Instructions Given to Patient (Per Discharging Provider) Hospital Course: You were admitted to the hospital after experiencing vomiting and diarrhea. While you were in the ED, imaging revealed that a blockage may have been present in your bowels. As a result, you were placed on bowel rest. The general surgery team was consulted and did not feel that there was a need for surgical intervention. Your diet was then slowly progressed and you were able to have a small bowel movement on 11/11, day of discharge. It was additionally discovered that you have a UTI during your inpatient stay, an antibiotic will be sent to your pharmacy. Discharge instructions: -Continue with low-fiber foods over the next 24-48 hours and slowly add back in foods with fiber -Low Fiber foods include: Grains such as white bread, white rice, and crackers Fruits that are peeled and well cooked Vegetables that are peeled and well cooked -Macrobid will be sent to your pharmacy to treat your UTI, please take twice daily for 5 days -Please continue to drink plenty of water, it's important that you stay hydrated. -Please maintain the appointment scheduled to have the stitches removed from your back scheduled for 11/12 -You should follow-up with your PCP within one week of discharge from the hospital Medications: Your medication list has been reviewed and reconciled upon discharge to ensure accuracy and continuity of care. An updated list of all your medications is included with your hospital discharge paperwork. Please review this list closely, and make note of any changes. We sent a new medication called Macrobid to your pharmacy. Take 2 times a day for the next 5 days. Start this evening. This is an antibiotic to help with your UTI . Take your medications as instructed; do not skip a dose of your medicines. Make sure all of your doctors know every medicine you are taking (including ivpn-mxj-tpnplqr medicines, vitamins, and supplements). Call your primary care provider before taking any new medicines (including over- the-counter medicines, vitamins, and supplements), because some of these may interact with your current medications, or may make your symptoms worse. Tell your primary care provider if you cannot afford your medications. Activity: You can do normal everyday activities as your body allows. Take rest breaks if you feel tired. Do not overexert. Stop activity if you have pain, shortness of breath or feel dizzy. Follow-up appointments: Make an appointment with your primary care physician within one week of discharge. A copy of this summary will be sent to them. Every time you see your primary care physician, or any other doctor, bring your medication list, and a list of questions. CONTACT YOUR PRIMARY CARE PROVIDER if you experience any of the following: Shortness of breath or difficulty breathing Fevers or chills Feeling tired with normal activity or experiencing dizziness or fainting Difficulty following your treatment plan, or difficulty taking medications CALL 911 OR GO TO THE EMERGENCY DEPARTMENT if you experience any of the following: Severe abdominal pain or nausea/vomiting Severe chest pain, or chest pain that radiates (moves) to your jaw or arm Sudden, severe shortness of breath or difficulty breathing Thank you for allowing us to participate in your care. Total Time Total Time Spent Total Time Spent (In Minutes): Time spent day of discharge 35 minutes including direct patient care, medication reconciliation, documentation, review of labs and images, and coordination of care. Coding Diagnoses Gastroenteritis K52.9 Ileus K56.7 Asymptomatic bacteriuria R82.71 Hyponatremia E87.1 Hypokalemia E87.6"
[2025-11-11 15:04] VITALS: BP 113/68; PULSE 82; RESP 18; TEMP 99.5; O2SAT 94
--- NOTE | 2025-11-14 06:20 | Electrocardiogram Report ---
Test Reason : Blood Pressure : */* mmHG Vent. Rate : 87 BPM Atrial Rate : 87 BPM P-R Int : 178 ms QRS Dur : 94 ms QT Int : 364 ms P-R-T Axes : 53 44 65 degrees QTcB Int : 438 ms Normal sinus rhythm Low voltage QRS Borderline ECG When compared with ECG of 03-Aug-2024 18:01, No significant change was found Confirmed by Ryder Black ([id number]) on 11/14/2025 6:20:10 AM Referred By: REFERRED SELF Confirmed By: Ryder Black
== END 2025-11-11 16:47 | disposition home or self-care (01) | DRG 392 ==
LOC: ED 17:05 → 3N 20:10 → SUATTDRO 20:10 → INTOOBSV 20:10 → 3N 21:49